=== PATIENT | male | born 1950 | race Caucasian/White ===

== ENCOUNTER 2017-11-09 19:14 | Inpatient (IN) | payer MEDICARE, OTHER ==
[~2017-11-09] VITALS: Ht 177.8 cm; Wt 66.0 kg
[2017-11-09] MEDS ORDERED: ETOMIDATE 20 MG/10 ML IVPush ONE (19:30)
[2017-11-09] MEDS ORDERED: PROPOFOL 100 ML IV SCH (19:30)
[2017-11-09] MEDS ORDERED: ONDANSETRON 2MG/ML, 2ML IVPush ONE (19:30)
[2017-11-09] MEDS ORDERED: SODIUM CHLORIDE FLUSH 10ML SYR IVF ONE (19:30)
[2017-11-09] MEDS ORDERED: SODIUM CHLORIDE 0.9% 1,000ML IVBOLUS ONE ×2 (19:30)
[2017-11-09] MEDS ORDERED: SUCCINYLCHOLINE 20 MG/ML, 10ML IVPush ONE (19:30)
[2017-11-09] MEDS ORDERED: PLEASE ENTER ALLERGIES MC SCH (19:30)
[2017-11-09] MEDS ORDERED: AMPICILLIN/SULBACTAM 3 GM in SODIUM CHLORIDE 0.9% 100 ML IV ONE (20:00)
[2017-11-09] MEDS ORDERED: SODIUM CHLORIDE 0.9%, 500ML IVBOLUS ONE ×2 (20:00→20:30)
[2017-11-09] MEDS ORDERED: PANTOPRAZOLE 40 MG IV IVPush ONE (20:00)
[2017-11-09 20:04] LABS: MEAN CORPUSCULAR HEMOGLOBIN 29.6 pg (27.5-34.5); MEAN CORPUSCULAR HGB CONC 32.3 g/dL (33.2-36.2); MEAN CORPUSCULAR VOLUME 91.7 fL (81-97); MEAN PLATELET VOLUME 8.4 fL (7.4-10.4); PLATELET COUNT 226 x10^3/uL (130-400); RED BLOOD COUNT 4.61 x10^6/uL (4.38-5.82); RED CELL DISTRIBUTION WIDTH 13.8 % (9.4-14.8)
[2017-11-09 20:19] LABS: ALBUMIN 2.5 g/dL (3.4-5.0); SALICYLATE LEVEL 3.1 mg/dL (2.8-20.0)
[2017-11-09] MEDS: NOREPINEPHRINE 4 MG in SODIUM CHLORIDE 0.9% 246 ML IV PRN (20:21)
[2017-11-09 20:28] LABS: ACETONE, SERUM Negative (Negative)
[2017-11-09 20:29] LABS: ALANINE AMINOTRANSFERASE 23 U/L (12-78); ANION GAP 14 mmol/L (5-15); BILIRUBIN,TOTAL 0.2 mg/dL (0.2-1.0); CALCIUM 7.2 mg/dL (8.5-10.1); CHLORIDE 100 mmol/L (98-107); CREATININE 2.93 mg/dL (0.7-1.3)
[2017-11-09] MEDS ORDERED: VANCOMYCIN PER PHARMACY MC ONE (20:30)
[2017-11-09] MEDS ORDERED: PIPERACILLIN/TAZO/PMX 3.375GM 50 ML IVPB ONE (20:30)
[2017-11-09 20:31] LABS: ACETAMINOPHEN 65 mcg/mL (10-30); ALKALINE PHOSPHATASE 63 U/L (45-117); TOTAL PROTEIN 5.7 g/dL (6.4-8.2)
[2017-11-09 20:46] LABS: INTERNATIONAL NORMALIZED RATIO 1.14 (0.93-1.1); PROTHROMBIN TIME 11.7 Seconds (9.6-11.5)
[2017-11-09] MEDS ORDERED: CALCIUM CHLORIDE 10%, 10ML SYR IVPush ONE (21:00)
[2017-11-09] MEDS ORDERED: VANCOMYCIN 1,500 MG in SODIUM CHLORIDE 0.9% 250 ML IV ONE (21:00)
[2017-11-09] MEDS ORDERED: INSULIN REGULAR 100 UNITS/ML, 3ML VIAL IVPush ONE (21:00)
[2017-11-09] MEDS ORDERED: SODIUM BICARB 8.4%, 50ML SYRINGE IVPush ONE (21:00)
[2017-11-09 21:01] LABS: MD YES
[2017-11-09 21:15] LABS: BAND#(MANUAL) 2.92 x10^3/uL; BANDS%(MANUAL) 6 % (0-7); LYMPH#(MANUAL) 30.68 x10^3/uL (1-3.4); LYMPHS% (MANUAL) 63 % (22-44); MONOS#(MANUAL) 0.97 x10^3/uL (0.3-2.7); MONOS% (MANUAL) 2 % (2-9); REACTIVE LYMPHS # (MANUAL) 1.95 x10^3/uL (0-0); REACTIVE LYMPHS % (MANUAL) 4 % (0-0); SEG#(MANUAL) 9.74 x10^3/uL (1.8-6.8); SEGS% (MANUAL) 20 % (42-75)
[2017-11-09 21:16] LABS: OTHER CELLS # (MANUAL) 2.44 x10^3/uL (0-0); OTHER CELLS % (MANUAL) 5 % (0-0)
[2017-11-09] MEDS ORDERED: CALCIUM CHLORIDE 10%, 10ML SYR ONE (21:16)
[2017-11-09] MEDS ORDERED: SODIUM BICARB 8.4%, 50ML SYRINGE ONE (21:16)
[2017-11-09 21:22] LABS: <PLATELET ESTIMATE> ADEQUATE; LARGE PLATELETS 1+
[2017-11-09] MEDS ORDERED: SODIUM CHLORIDE 0.9%, 500ML IVBOLUS PRN ×3 (21:30)
[2017-11-09] MEDS ORDERED: GLUCAGON 1 MG IM PRN (21:30)
[2017-11-09] MEDS ORDERED: DEXTROSE 50%, 50ML SYRINGE IVPush PRN (21:30)
[2017-11-09] MEDS ORDERED: DEXTROSE 4 GM TAB.CHEW PO PRN (21:30)
[2017-11-09] MEDS ORDERED: DEXTROSE 5% IV ONE ×2 (21:30→23:30)
[2017-11-09] MEDS ORDERED: VANCOMYCIN PER PHARMACY MC PRN (21:30)
[2017-11-09] MEDS ORDERED: ACETYLCYSTEINE IV ONE ×2 (21:30→23:30)
[2017-11-09] MEDS ORDERED: ONDANSETRON 2MG/ML, 2ML IVPB PRN (21:30)
[2017-11-09] MEDS: PIPERACILLIN/TAZO/PMX 4.5GM 50 ML IVPB SCH (21:30)
[2017-11-09] MEDS: INSULIN LISPRO 100 UNITS/ML, PEN SQ-INSULIN SCH (21:30)
[2017-11-09] MEDS ORDERED: PHARMACY MAY ADJ FOR RENAL FX MC PRN (21:30)
[2017-11-09] MEDS ORDERED: PHARMACY MAY ADJ FOR RENAL FX MC SCH (22:00)
[2017-11-09] MEDS ORDERED: LIDOCAINE-MPF 1%, 2ML ENDO PRN (22:00)
[2017-11-09] MEDS: SODIUM BICARBONATE 8.4% 150 MEQ in DEXTROSE 5% 1,000 ML IV SCH (22:39)
[2017-11-09 22:40] LABS: AMPHETAMINE SCREEN, URINE Negative (Negative); BARBITURATE SCREEN, URINE Negative (Negative); BENZODIAZEPINE SCREEN, URINE Positive (Negative); CANNABINOID SCREEN, URINE Negative (Negative); COCAINE SCREEN, URINE Negative (Negative); METHADONE SCREEN, URINE Negative (Negative); OPIATE SCREEN, URINE Positive (Negative)
[2017-11-09 22:42] LABS: MICROSCOPIC INDICATED
[2017-11-09 22:59] LABS: CULTURE INDICATED? NO
[2017-11-09] MEDS ORDERED: PANTOPRAZOLE 40 MG IV ONE (23:34)
[2017-11-09] MEDS: PANTOPRAZOLE 40 MG IV IV SCH (23:40)
[2017-11-10] MEDS ORDERED: ACETAMINOPHEN 650 MG SUPP ONE (01:20)
[2017-11-10] MEDS ORDERED: ACETAMINOPHEN 650 MG SUPP PR ONE (01:30)
[2017-11-10] MEDS: NOREPINEPHRINE 4 MG in SODIUM CHLORIDE 0.9% 246 ML IV PRN ×3 (01:32→13:50)
[2017-11-10] MEDS: PANTOPRAZOLE 80 MG in SODIUM CHLORIDE 0.9% 100 ML IV SCH ×2 (01:51→10:22)
[2017-11-10] MEDS ORDERED: PROPOFOL 100 ML IV ONE (04:00)
[2017-11-10] MEDS ORDERED: IBUPROFEN 100 MG/5 ML UDC ONE (04:08)
[2017-11-10] MEDS ORDERED: IBUPROFEN 600 MG TABLET PO PRN (04:30)
[2017-11-10 05:15] LABS: MEAN CORPUSCULAR HEMOGLOBIN 29.7 pg (27.5-34.5); MEAN CORPUSCULAR HGB CONC 32.8 g/dL (33.2-36.2); MEAN CORPUSCULAR VOLUME 90.4 fL (81-97); MEAN PLATELET VOLUME 8.5 fL (7.4-10.4); PLATELET COUNT 204 x10^3/uL (130-400); RED BLOOD COUNT 4.97 x10^6/uL (4.38-5.82)
[2017-11-10 05:20] LABS: ALANINE AMINOTRANSFERASE 29 U/L (12-78); ALBUMIN 2.1 g/dL (3.4-5.0); ANION GAP 12 mmol/L (5-15); CHLORIDE 105 mmol/L (98-107); CREATININE 2.58 mg/dL (0.7-1.3)
[2017-11-10 05:28] LABS: ACETAMINOPHEN 17 mcg/mL (10-30); ALKALINE PHOSPHATASE 42 U/L (45-117); BILIRUBIN,TOTAL 0.3 mg/dL (0.2-1.0); TOTAL PROTEIN 4.8 g/dL (6.4-8.2)
[2017-11-10 05:38] LABS: MD YES
[2017-11-10 06:10] LABS: LYMPHS% (MANUAL) 96 % (22-44); SEGS% (MANUAL) 4 % (42-75)
[2017-11-10 06:12] LABS: <PLATELET ESTIMATE> ADEQUATE; <RBC MORPHOLOGY> NORMAL
[2017-11-10 06:13] LABS: LARGE PLATELETS 1+; SMUDGE CELLS 3+
[2017-11-10] MEDS: INSULIN LISPRO 100 UNITS/ML, PEN SQ-INSULIN SCH ×5 (07:00→20:54)
[2017-11-10] MEDS ORDERED: VASOPRESSIN 100 UNIT in SODIUM CHLORIDE 0.9% 495 ML IV PRN (08:30)
[2017-11-10] MEDS ORDERED: HEPARIN 5,000 UNITS/ML, 1ML ONE (08:59)
[2017-11-10] MEDS: SODIUM CHLORIDE FLUSH 10ML SYR IVF SCH ×2 (09:00→20:37)
[2017-11-10] MEDS: HEPARIN 5,000 UNITS/ML, 1ML SQ SCH ×2 (09:00→20:11)
[2017-11-10] MEDS ORDERED: DEXTROSE 5% IV ONE (09:30)
[2017-11-10] MEDS: PIPERACILLIN/TAZO/PMX 4.5GM 50 ML IVPB SCH ×3 (09:30→18:32)
[2017-11-10] MEDS ORDERED: ACETYLCYSTEINE IV ONE (09:30)
[2017-11-10] MEDS: PROPOFOL 100 ML IV PRN ×2 (10:00→18:31)
[2017-11-10] MEDS ORDERED: SUCCINYLCHOLINE 20 MG/ML, 10ML ONE (12:00)
[2017-11-10] MEDS ORDERED: MIDAZOLAM 1 MG/ML, 5ML ONE (12:00)
[2017-11-10] MEDS ORDERED: PROPOFOL 10 MG/ML, 100ML IV ONE (12:00)
[2017-11-10] MEDS ORDERED: ETOMIDATE 40 MG/20 ML ONE (12:00)
[2017-11-10] MEDS ORDERED: VECURONIUM 10 MG ONE (12:00)
[2017-11-10] MEDS ORDERED: RACEPINEPHRINE INH 2.25%, 0.5ML ONE (12:26)
[2017-11-10] MEDS ORDERED: PHARMACOKINETIC CONSULTATION MC ONE (12:30)
[2017-11-10] MEDS ORDERED: PHARMACOKINETIC MONITORING MC PRN (12:30)
[2017-11-10] MEDS ORDERED: SODIUM CHLORIDE 0.9%, 500ML IVBOLUS PRN (13:00)
[2017-11-10] MEDS: SODIUM BICARBONATE 8.4% 150 MEQ in DEXTROSE 5% 1,000 ML IV SCH ×3 (13:20→22:38)
[2017-11-10 15:01] LABS: OCCULT BLOOD POSITIVE (NEGATIVE)
[2017-11-10 17:07] LABS: ANION GAP 15 mmol/L (5-15); CALCIUM 7.2 mg/dL (8.5-10.1); CHLORIDE 99 mmol/L (98-107); CREATININE 2.91 mg/dL (0.7-1.3)
[2017-11-10 17:22] LABS: CREATINE KINASE, TOTAL 1598 U/L (39-308)
[2017-11-10 18:51] LABS: CLOSTRIDIUM DIFFICILE ANTIGEN NEGATIVE; CLOSTRIDIUM DIFFICILE TOXIN NEGATIVE (Negative)
[2017-11-10] MEDS ORDERED: VANCOMYCIN 1,500 MG in SODIUM CHLORIDE 0.9% 250 ML IV ONE (20:00)
[2017-11-10] MEDS: FOLIC ACID 1 MG TABLET PO SCH (21:15)
[2017-11-10] MEDS: THIAMINE 100MG TABLET PO SCH (21:15)
[2017-11-10] MEDS: PANTOPRAZOLE 40 MG IV IV SCH (21:17)
[2017-11-11] MEDS: PIPERACILLIN/TAZO/PMX 4.5GM 50 ML IVPB SCH ×4 (00:19→17:50)
[2017-11-11] MEDS: NOREPINEPHRINE 4 MG in SODIUM CHLORIDE 0.9% 246 ML IV PRN ×2 (01:36→11:07)
[2017-11-11] MEDS ORDERED: ACETYLCYSTEINE IV SCH (02:00)
[2017-11-11] MEDS ORDERED: DEXTROSE 5% IV SCH (02:00)
[2017-11-11 04:04] VITALS: BP 112/62
[2017-11-11 05:59] LABS: ALANINE AMINOTRANSFERASE 21 U/L (12-78); ALBUMIN 1.6 g/dL (3.4-5.0); ANION GAP 12 mmol/L (5-15); CALCIUM 6.6 mg/dL (8.5-10.1); CHLORIDE 97 mmol/L (98-107)
[2017-11-11 06:02] LABS: ACETAMINOPHEN 11 mcg/mL (10-30); ALKALINE PHOSPHATASE 42 U/L (45-117); BILIRUBIN,TOTAL 0.5 mg/dL (0.2-1.0); TOTAL PROTEIN 4.5 g/dL (6.4-8.2)
[2017-11-11 06:09] LABS: MEAN CORPUSCULAR HEMOGLOBIN 29.6 pg (27.5-34.5); MEAN CORPUSCULAR HGB CONC 33.2 g/dL (33.2-36.2); MEAN CORPUSCULAR VOLUME 89.2 fL (81-97); MEAN PLATELET VOLUME 9.1 fL (7.4-10.4); PLATELET COUNT 151 x10^3/uL (130-400); RED CELL DISTRIBUTION WIDTH 13.8 % (9.4-14.8)
[2017-11-11] MEDS: SODIUM BICARBONATE 8.4% 150 MEQ in DEXTROSE 5% 1,000 ML IV SCH (06:23)
[2017-11-11 07:34] LABS: MD YES
[2017-11-11] MEDS: INSULIN LISPRO 100 UNITS/ML, PEN SQ-INSULIN SCH ×4 (07:35→21:30)
[2017-11-11 07:38] LABS: BAND#(MANUAL) 3.86 x10^3/uL; BANDS%(MANUAL) 8 % (0-7); MONOS#(MANUAL) 0.96 x10^3/uL (0.3-2.7); MONOS% (MANUAL) 2 % (2-9); SEG#(MANUAL) 5.78 x10^3/uL (1.8-6.8); SEGS% (MANUAL) 12 % (42-75)
[2017-11-11 07:39] LABS: <RBC MORPHOLOGY> NORMAL; SMUDGE CELLS 3+
[2017-11-11 07:40] LABS: <PLATELET ESTIMATE> ADEQUATE
[2017-11-11 07:42] LABS: LYMPHS% (MANUAL) 75 % (22-44); OTHER CELLS # (MANUAL) 1.45 x10^3/uL (0-0); OTHER CELLS % (MANUAL) 3 % (0-0)
[2017-11-11 07:43] LABS: LARGE PLATELETS 1+
[2017-11-11] MEDS: HEPARIN 5,000 UNITS/ML, 1ML SQ SCH (09:00)
[2017-11-11] MEDS: OCTREOTIDE 500 MCG in SODIUM CHLORIDE 0.9% 249 ML IV SCH ×2 (11:08→20:46)
[2017-11-11] MEDS: LACTATED RINGERS 1,000 ML IV SCH ×2 (11:09→21:25)
[2017-11-11] MEDS: SODIUM CHLORIDE FLUSH 10ML SYR IVF SCH ×2 (11:12→21:25)
[2017-11-11] MEDS: PANTOPRAZOLE 40 MG IV IV SCH ×2 (11:13→21:25)
[2017-11-11] MEDS: THIAMINE 100MG TABLET PO SCH (11:13)
[2017-11-11] MEDS: FOLIC ACID 1 MG TABLET PO SCH (11:13)
[2017-11-11] MEDS: PROPOFOL 100 ML IV PRN (16:45)
[2017-11-12] MEDS: PIPERACILLIN/TAZO/PMX 4.5GM 50 ML IVPB SCH ×2 (00:04→05:53)
[2017-11-12 04:00] VITALS: BP 110/64
[2017-11-12 05:26] LABS: MEAN CORPUSCULAR HEMOGLOBIN 29.7 pg (27.5-34.5); MEAN CORPUSCULAR HGB CONC 33.5 g/dL (33.2-36.2); MEAN CORPUSCULAR VOLUME 88.8 fL (81-97); RED BLOOD COUNT 3.83 x10^6/uL (4.38-5.82); RED CELL DISTRIBUTION WIDTH 13.6 % (9.4-14.8)
[2017-11-12 05:28] LABS: CHLORIDE 96 mmol/L (98-107)
[2017-11-12 05:46] LABS: ALANINE AMINOTRANSFERASE 16 U/L (12-78); ALBUMIN 1.5 g/dL (3.4-5.0); ALKALINE PHOSPHATASE 65 U/L (45-117); ANION GAP 15 mmol/L (5-15); BILIRUBIN,TOTAL 0.7 mg/dL (0.2-1.0); CALCIUM 6.6 mg/dL (8.5-10.1); CREATINE KINASE, TOTAL 600 U/L (39-308); CREATININE 3.43 mg/dL (0.7-1.3); TOTAL PROTEIN 4.7 g/dL (6.4-8.2); TRIGLYCERIDES 537 mg/dL (50-200); VANCOMYCIN,RANDOM 22.2 mcg/mL
[2017-11-12] MEDS: LACTATED RINGERS 1,000 ML IV SCH (05:53)
[2017-11-12] MEDS: OCTREOTIDE 500 MCG in SODIUM CHLORIDE 0.9% 249 ML IV SCH ×2 (05:54→16:51)
[2017-11-12 05:55] LABS: MD YES
[2017-11-12 06:00] LABS: LYMPH#(MANUAL) 31.82 x10^3/uL (1-3.4); LYMPHS% (MANUAL) 72 % (22-44); MEAN PLATELET VOLUME 8.8 fL (7.4-10.4); MONOS#(MANUAL) 0.88 x10^3/uL (0.3-2.7); MONOS% (MANUAL) 2 % (2-9); PLATELET COUNT 99 x10^3/uL (130-400); SEG#(MANUAL) 11.49 x10^3/uL (1.8-6.8); SEGS% (MANUAL) 26 % (42-75)
[2017-11-12 06:01] LABS: SMUDGE CELLS 2+
[2017-11-12 06:02] LABS: <PLATELET ESTIMATE> DECREASED; LARGE PLATELETS 1+; POLYCHROMASIA 1+
[2017-11-12] MEDS: INSULIN LISPRO 100 UNITS/ML, PEN SQ-INSULIN SCH ×4 (06:54→21:45)
[2017-11-12] MEDS ORDERED: CEFTRIAXONE PMX 2GM/50ML 50 ML IVPB SCH (08:30)
[2017-11-12] MEDS: METRONIDAZOLE PMX 500MG/100ML 100 ML IV SCH ×3 (08:48→23:50)
[2017-11-12] MEDS: PANTOPRAZOLE 40 MG IV IV SCH ×2 (09:00→21:39)
[2017-11-12] MEDS: SODIUM CHLORIDE FLUSH 10ML SYR IVF SCH ×2 (09:01→21:39)
[2017-11-12] MEDS: D5%-0.9% NACL 1,000 ML IV SCH ×2 (10:00→23:50)
[2017-11-12] MEDS: PROPOFOL 100 ML IV PRN (11:21)
[2017-11-12] MEDS ORDERED: ASPIRIN 325 MG TABLET PO ONE (16:00)
[2017-11-12] MEDS: ATORVASTATIN 80 MG TABLET PO SCH (21:40)
[2017-11-12] MEDS: THIAMINE 100MG TABLET PO SCH (21:42)
[2017-11-12] MEDS: FOLIC ACID 1 MG TABLET PO SCH (21:42)
[2017-11-12] MEDS: FENTANYL PF 100 MCG/2ML IVPush PRN (23:25)
[2017-11-13] MEDS: OCTREOTIDE 500 MCG in SODIUM CHLORIDE 0.9% 249 ML IV SCH ×3 (02:49→23:14)
[2017-11-13] MEDS: FENTANYL PF 100 MCG/2ML IVPush PRN ×3 (02:49→19:37)
[2017-11-13 03:30] VITALS: BP 140/78
[2017-11-13 05:04] LABS: MEAN CORPUSCULAR HEMOGLOBIN 29.3 pg (27.5-34.5); MEAN CORPUSCULAR HGB CONC 33.2 g/dL (33.2-36.2); MEAN CORPUSCULAR VOLUME 88.3 fL (81-97); RED BLOOD COUNT 3.82 x10^6/uL (4.38-5.82); RED CELL DISTRIBUTION WIDTH 13.8 % (9.4-14.8)
[2017-11-13 05:55] LABS: MD YES; PLATELET COUNT 76 x10^3/uL (130-400)
[2017-11-13 05:56] LABS: MONOS#(MANUAL) 0.41 x10^3/uL (0.3-2.7); MONOS% (MANUAL) 1 % (2-9)
[2017-11-13 05:58] LABS: LYMPHS% (MANUAL) 76 % (22-44); SEG#(MANUAL) 9.45 x10^3/uL (1.8-6.8); SEGS% (MANUAL) 23 % (42-75)
[2017-11-13 05:59] LABS: LYMPH#(MANUAL) 31.24 x10^3/uL (1-3.4)
[2017-11-13 06:00] LABS: <PLATELET ESTIMATE> DECREASED; LARGE PLATELETS 1+; SMUDGE CELLS 2+
[2017-11-13 06:02] LABS: POLYCHROMASIA 1+
[2017-11-13 06:19] LABS: ANION GAP 11 mmol/L (5-15); CALCIUM 7.1 mg/dL (8.5-10.1); CHLORIDE 103 mmol/L (98-107); CREATININE 3.14 mg/dL (0.7-1.3)
[2017-11-13] MEDS: ASPIRIN 325 MG TABLET PO SCH (06:33)
[2017-11-13] MEDS: CEFTRIAXONE 2,000 MG in SODIUM CHLORIDE 0.9% 50 ML IVPB SCH (09:17)
[2017-11-13] MEDS: METRONIDAZOLE PMX 500MG/100ML 100 ML IV SCH ×2 (09:18→16:37)
[2017-11-13] MEDS: SODIUM CHLORIDE FLUSH 10ML SYR IVF SCH ×2 (09:19→19:37)
[2017-11-13] MEDS: INSULIN LISPRO 100 UNITS/ML, PEN SQ-INSULIN SCH ×3 (09:19→19:43)
[2017-11-13] MEDS: PANTOPRAZOLE 40 MG IV IV SCH ×2 (09:25→19:37)
[2017-11-13] MEDS: FENTANYL 50 MCG PATCH TD SCH (09:25)
[2017-11-13] MEDS: OFLOXACIN OPHTH 0.3%, 5ML EACHEYE SCH ×4 (11:57→19:44)
[2017-11-13] MEDS: D5%-0.9% NACL 1,000 ML IV SCH (11:58)
[2017-11-13] MEDS: ATORVASTATIN 80 MG TABLET PO SCH (19:38)
[2017-11-13] MEDS: THIAMINE 100MG TABLET PO SCH (19:43)
[2017-11-13] MEDS: FOLIC ACID 1 MG TABLET PO SCH (19:43)
[2017-11-14] MEDS: METRONIDAZOLE PMX 500MG/100ML 100 ML IV SCH ×3 (00:17→17:18)
[2017-11-14] MEDS: FENTANYL PF 100 MCG/2ML IVPush PRN ×3 (00:17→13:23)
[2017-11-14] MEDS: OFLOXACIN OPHTH 0.3%, 5ML EACHEYE SCH ×6 (00:18→22:30)
[2017-11-14] MEDS: D5%-0.9% NACL 1,000 ML IV SCH (00:20)
[2017-11-14] MEDS: INSULIN LISPRO 100 UNITS/ML, PEN SQ-INSULIN SCH ×4 (03:05→19:51)
[2017-11-14 04:00] VITALS: BP 159/75
[2017-11-14 04:49] LABS: MEAN CORPUSCULAR HEMOGLOBIN 29.2 pg (27.5-34.5); MEAN CORPUSCULAR HGB CONC 32.6 g/dL (33.2-36.2); MEAN CORPUSCULAR VOLUME 89.5 fL (81-97); MEAN PLATELET VOLUME 8.5 fL (7.4-10.4); PLATELET COUNT 76 x10^3/uL (130-400); RED BLOOD COUNT 4.13 x10^6/uL (4.38-5.82); RED CELL DISTRIBUTION WIDTH 13.8 % (9.4-14.8)
[2017-11-14 04:54] LABS: FIO2 95 %
[2017-11-14 05:00] LABS: CHLORIDE 111 mmol/L (98-107)
[2017-11-14 05:11] LABS: ALANINE AMINOTRANSFERASE 18 U/L (12-78); ALBUMIN 1.5 g/dL (3.4-5.0); ALKALINE PHOSPHATASE 86 U/L (45-117); ANION GAP 8 mmol/L (5-15); BILIRUBIN,TOTAL 0.7 mg/dL (0.2-1.0); CALCIUM 7.8 mg/dL (8.5-10.1); TOTAL PROTEIN 5.2 g/dL (6.4-8.2)
[2017-11-14] MEDS: ASPIRIN 325 MG TABLET PO SCH (05:13)
[2017-11-14 05:37] LABS: MD YES
[2017-11-14 05:38] LABS: LYMPH#(MANUAL) 38.16 x10^3/uL (1-3.4); LYMPHS% (MANUAL) 79 % (22-44); MONOS#(MANUAL) 0.48 x10^3/uL (0.3-2.7); MONOS% (MANUAL) 1 % (2-9); SEG#(MANUAL) 9.66 x10^3/uL (1.8-6.8); SEGS% (MANUAL) 20 % (42-75)
[2017-11-14 05:39] LABS: <RBC MORPHOLOGY> NORMAL; SMUDGE CELLS 2+
[2017-11-14 05:40] LABS: <PLATELET ESTIMATE> DECREASED; LARGE PLATELETS 1+
[2017-11-14] MEDS ORDERED: D5%-0.45% NACL 1,000 ML IV SCH (07:30)
[2017-11-14 09:44] LABS: HIT RESULT NEGATIVE (NEGATIVE)
[2017-11-14] MEDS: FUROSEMIDE 20 MG/2 ML IV SCH ×2 (10:27→19:48)
[2017-11-14] MEDS: PANTOPRAZOLE 40 MG IV IV SCH ×2 (10:27→19:48)
[2017-11-14] MEDS: CEFTRIAXONE 2,000 MG in SODIUM CHLORIDE 0.9% 50 ML IVPB SCH (10:31)
[2017-11-14] MEDS: SODIUM CHLORIDE FLUSH 10ML SYR IVF SCH ×2 (10:32→19:48)
[2017-11-14] MEDS: CARVEDILOL 3.125 MG TABLET PO SCH ×2 (11:59→17:21)
[2017-11-14] MEDS ORDERED: hydrALAzine 20 MG/ML, 1ML ONE (15:41)
[2017-11-14] MEDS: hydrALAzine 20 MG/ML, 1ML IV PRN (15:43)
[2017-11-14] MEDS: FOLIC ACID 1 MG TABLET PO SCH (19:48)
[2017-11-14] MEDS: ATORVASTATIN 80 MG TABLET PO SCH (19:48)
[2017-11-14] MEDS: THIAMINE 100MG TABLET PO SCH (19:49)
[2017-11-15] MEDS: OFLOXACIN OPHTH 0.3%, 5ML EACHEYE SCH ×4 (01:13→21:01)
[2017-11-15] MEDS: METRONIDAZOLE PMX 500MG/100ML 100 ML IV SCH ×3 (01:13→16:45)
[2017-11-15] MEDS ORDERED: METOPROLOL 1 MG/ML, 5ML ONE (02:55)
[2017-11-15] MEDS: INSULIN LISPRO 100 UNITS/ML, PEN SQ-INSULIN SCH ×4 (03:00→21:00)
[2017-11-15] MEDS ORDERED: METOPROLOL 1 MG/ML, 5ML IVPush ONE ×2 (03:00→04:00)
[2017-11-15 03:56] VITALS: BP 150/90
[2017-11-15] MEDS: ASPIRIN 325 MG TABLET PO SCH (05:06)
[2017-11-15] MEDS: CARVEDILOL 3.125 MG TABLET PO SCH ×2 (06:04→18:19)
[2017-11-15] MEDS: hydrALAzine 20 MG/ML, 1ML IV PRN (06:34)
[2017-11-15 06:44] LABS: MEAN CORPUSCULAR HEMOGLOBIN 29.5 pg (27.5-34.5); MEAN CORPUSCULAR HGB CONC 32.9 g/dL (33.2-36.2); MEAN CORPUSCULAR VOLUME 89.7 fL (81-97); MEAN PLATELET VOLUME 8.6 fL (7.4-10.4); PLATELET COUNT 118 x10^3/uL (130-400); RED BLOOD COUNT 4.79 x10^6/uL (4.38-5.82); RED CELL DISTRIBUTION WIDTH 14.1 % (9.4-14.8)
[2017-11-15 06:46] LABS: CALCIUM 7.9 mg/dL (8.5-10.1); CREATININE 1.39 mg/dL (0.7-1.3)
[2017-11-15 06:51] LABS: ANION GAP 10 mmol/L (5-15); CHLORIDE 111 mmol/L (98-107)
[2017-11-15 07:24] LABS: MD YES
[2017-11-15 08:28] LABS: EOS% (MANUAL) 0 % (1-7); MONOS#(MANUAL) 0.69 x10^3/uL (0.3-2.7); MONOS% (MANUAL) 1 % (2-9); REACTIVE LYMPHS % (MANUAL) 0 % (0-0)
[2017-11-15 08:30] LABS: BAND#(MANUAL) 0.69 x10^3/uL; BANDS%(MANUAL) 1 % (0-7); LYMPH#(MANUAL) 57.71 x10^3/uL (1-3.4); LYMPHS% (MANUAL) 84 % (22-44); SEG#(MANUAL) 9.62 x10^3/uL (1.8-6.8); SEGS% (MANUAL) 14 % (42-75)
[2017-11-15] MEDS ORDERED: FUROSEMIDE 20 MG/2 ML IV ONE (08:30)
[2017-11-15] MEDS ORDERED: POTASSIUM CHLORIDE 20 MEQ in SODIUM CHLORIDE 0.9% 250 ML IV ONE (08:30)
[2017-11-15 08:31] LABS: POLYCHROMASIA 1+; SMUDGE CELLS 2+
[2017-11-15 08:32] LABS: <PLATELET ESTIMATE> DECREASED; LARGE PLATELETS 1+
[2017-11-15] MEDS: CEFTRIAXONE 2,000 MG in SODIUM CHLORIDE 0.9% 50 ML IVPB SCH (09:17)
[2017-11-15] MEDS: FONDAPARINUX 2.5 MG/0.5 ML SQ SCH (09:20)
[2017-11-15] MEDS: SODIUM CHLORIDE FLUSH 10ML SYR IVF SCH ×2 (09:20→20:59)
[2017-11-15] MEDS: PANTOPRAZOLE 40 MG IV IV SCH ×2 (09:20→20:59)
[2017-11-15] MEDS: AMIODARONE 900 MG in DEXTROSE 5% 482 ML IV PRN (14:45)
[2017-11-15] MEDS ORDERED: FILTER 0.22 MICRON FOR AMIODARONE IV PRN (15:00)
[2017-11-15] MEDS ORDERED: AMIODARONE 150 MG in DEXTROSE 5% 100 ML IV ONE (15:00)
[2017-11-15] MEDS ORDERED: SODIUM CHLORIDE 0.9%, 500ML IVBOLUS ONE ×2 (15:00)
[2017-11-15] MEDS: FOLIC ACID 1 MG TABLET PO SCH (21:00)
[2017-11-15] MEDS: THIAMINE 100MG TABLET PO SCH (21:00)
[2017-11-15] MEDS: ATORVASTATIN 80 MG TABLET PO SCH (21:00)
[2017-11-16] MEDS: METRONIDAZOLE PMX 500MG/100ML 100 ML IV SCH ×2 (00:23→07:35)
[2017-11-16] MEDS: hydrALAzine 20 MG/ML, 1ML IV PRN ×2 (03:00→08:20)
[2017-11-16] MEDS: ACETAMINOPHEN 325 MG TABLET PO PRN ×2 (03:10→12:17)
[2017-11-16] MEDS ORDERED: METOPROLOL 1 MG/ML, 5ML IVPush ONE (04:00)
[2017-11-16 05:30] VITALS: BP 160/58
[2017-11-16] MEDS: ASPIRIN 325 MG TABLET PO SCH (05:32)
[2017-11-16] MEDS: CARVEDILOL 3.125 MG TABLET PO SCH ×2 (05:33→17:18)
[2017-11-16] MEDS: CEFTRIAXONE 2,000 MG in SODIUM CHLORIDE 0.9% 50 ML IVPB SCH (07:35)
[2017-11-16] MEDS: OFLOXACIN OPHTH 0.3%, 5ML EACHEYE SCH ×3 (07:36→21:39)
[2017-11-16] MEDS: PANTOPRAZOLE 40 MG IV IV SCH ×2 (07:42→21:39)
[2017-11-16] MEDS: FENTANYL 50 MCG PATCH TD SCH (07:42)
[2017-11-16] MEDS: FONDAPARINUX 2.5 MG/0.5 ML SQ SCH (07:43)
[2017-11-16] MEDS: SODIUM CHLORIDE FLUSH 10ML SYR IVF SCH ×2 (07:43→21:39)
[2017-11-16 07:55] LABS: ALANINE AMINOTRANSFERASE 15 U/L (12-78); ALBUMIN 1.9 g/dL (3.4-5.0); CALCIUM 7.7 mg/dL (8.5-10.1)
[2017-11-16 07:57] LABS: ALKALINE PHOSPHATASE 113 U/L (45-117); BILIRUBIN,TOTAL 0.6 mg/dL (0.2-1.0); TOTAL PROTEIN 5.6 g/dL (6.4-8.2)
[2017-11-16 08:04] LABS: ANION GAP 9 mmol/L (5-15); CHLORIDE 123 mmol/L (98-107)
[2017-11-16 08:11] LABS: MEAN CORPUSCULAR HEMOGLOBIN 28.9 pg (27.5-34.5); MEAN CORPUSCULAR HGB CONC 32.5 g/dL (33.2-36.2); MEAN CORPUSCULAR VOLUME 88.9 fL (81-97); MEAN PLATELET VOLUME 8.4 fL (7.4-10.4); PLATELET COUNT 224 x10^3/uL (130-400); RED BLOOD COUNT 4.74 x10^6/uL (4.38-5.82)
[2017-11-16 08:12] LABS: MD YES
[2017-11-16] MEDS: INSULIN LISPRO 100 UNITS/ML, PEN SQ-INSULIN SCH ×4 (08:15→21:49)
[2017-11-16] MEDS: AMIODARONE 900 MG in DEXTROSE 5% 482 ML IV PRN (08:16)
[2017-11-16 08:19] LABS: LYMPH#(MANUAL) 58.25 x10^3/uL (1-3.4); LYMPHS% (MANUAL) 73 % (22-44); SEG#(MANUAL) 21.55 x10^3/uL (1.8-6.8); SEGS% (MANUAL) 27 % (42-75)
[2017-11-16 08:20] LABS: <PLATELET ESTIMATE> ADEQUATE; POLYCHROMASIA 1+; SMUDGE CELLS 2+
[2017-11-16 08:21] LABS: LARGE PLATELETS 1+
[2017-11-16] MEDS: DEXTROSE 5% 1,000 ML IV SCH ×2 (08:24→17:19)
[2017-11-16] MEDS: ERTAPENEM 1 GM in SODIUM CHLORIDE 0.9% 50 ML IV SCH (09:11)
[2017-11-16] MEDS: ATORVASTATIN 80 MG TABLET PO SCH (21:39)
[2017-11-16] MEDS: THIAMINE 100MG TABLET PO SCH (21:39)
[2017-11-16] MEDS: FOLIC ACID 1 MG TABLET PO SCH (21:39)
[2017-11-17 04:00] VITALS: BP 156/58
[2017-11-17 04:31] LABS: MEAN CORPUSCULAR HEMOGLOBIN 29.1 pg (27.5-34.5); MEAN CORPUSCULAR HGB CONC 32.2 g/dL (33.2-36.2); MEAN CORPUSCULAR VOLUME 90.3 fL (81-97); MEAN PLATELET VOLUME 8.2 fL (7.4-10.4); PLATELET COUNT 270 x10^3/uL (130-400); RED BLOOD COUNT 4.65 x10^6/uL (4.38-5.82); RED CELL DISTRIBUTION WIDTH 14.2 % (9.4-14.8)
[2017-11-17 04:36] LABS: ALBUMIN 1.8 g/dL (3.4-5.0); ANION GAP 7 mmol/L (5-15); CALCIUM 7.5 mg/dL (8.5-10.1); CHLORIDE 112 mmol/L (98-107)
[2017-11-17 04:40] LABS: ALANINE AMINOTRANSFERASE 15 U/L (12-78); ALKALINE PHOSPHATASE 106 U/L (45-117); BILIRUBIN,TOTAL 0.5 mg/dL (0.2-1.0); CREATININE 1.23 mg/dL (0.7-1.3); TOTAL PROTEIN 5.3 g/dL (6.4-8.2)
[2017-11-17 05:41] LABS: MD YES
[2017-11-17 05:42] LABS: LYMPH#(MANUAL) 75.43 x10^3/uL (1-3.4); LYMPHS% (MANUAL) 84 % (22-44); POLYCHROMASIA 1+; SEG#(MANUAL) 14.37 x10^3/uL (1.8-6.8); SEGS% (MANUAL) 16 % (42-75)
[2017-11-17 05:43] LABS: <PLATELET ESTIMATE> ADEQUATE; LARGE PLATELETS 1+; SMUDGE CELLS 2+
[2017-11-17] MEDS: CARVEDILOL 3.125 MG TABLET PO SCH ×2 (05:47→17:38)
[2017-11-17] MEDS: ASPIRIN 325 MG TABLET PO SCH (05:47)
[2017-11-17] MEDS: INSULIN LISPRO 100 UNITS/ML, PEN SQ-INSULIN SCH ×4 (07:30→21:34)
[2017-11-17] MEDS ORDERED: FUROSEMIDE 20 MG/2 ML IV ONE (08:30)
[2017-11-17] MEDS: PANTOPRAZOLE 40 MG IV IV SCH ×2 (08:38→21:24)
[2017-11-17] MEDS: FONDAPARINUX 2.5 MG/0.5 ML SQ SCH (08:38)
[2017-11-17] MEDS: SODIUM CHLORIDE FLUSH 10ML SYR IVF SCH ×2 (08:38→21:24)
[2017-11-17] MEDS: OFLOXACIN OPHTH 0.3%, 5ML EACHEYE SCH ×3 (08:39→21:35)
[2017-11-17] MEDS: ERTAPENEM 1 GM in SODIUM CHLORIDE 0.9% 50 ML IV SCH (09:20)
[2017-11-17 15:52] VITALS: BP 163/77
[2017-11-17 16:52] LABS: OCCULT BLOOD POSITIVE (NEGATIVE)
[2017-11-17] MEDS: AMIODARONE 900 MG in DEXTROSE 5% 482 ML IV PRN (17:55)
[2017-11-17 18:37] VITALS: BP 144/72
[2017-11-17] MEDS: THIAMINE 100MG TABLET PO SCH (21:37)
[2017-11-17] MEDS: ATORVASTATIN 80 MG TABLET PO SCH (21:37)
[2017-11-17] MEDS: FOLIC ACID 1 MG TABLET PO SCH (21:37)
[2017-11-18 00:05] VITALS: BP 136/69
[2017-11-18 05:16] LABS: CHLORIDE 113 mmol/L (98-107)
[2017-11-18 05:23] LABS: ALANINE AMINOTRANSFERASE 15 U/L (12-78); ALBUMIN 1.9 g/dL (3.4-5.0); ALKALINE PHOSPHATASE 101 U/L (45-117); ANION GAP 8 mmol/L (5-15); BILIRUBIN,TOTAL 0.8 mg/dL (0.2-1.0); CALCIUM 7.3 mg/dL (8.5-10.1); CREATININE 1.05 mg/dL (0.7-1.3); TOTAL PROTEIN 5.1 g/dL (6.4-8.2)
[2017-11-18 05:24] LABS: MEAN CORPUSCULAR HGB CONC 32.4 g/dL (33.2-36.2); MEAN CORPUSCULAR VOLUME 89.4 fL (81-97); MEAN PLATELET VOLUME 8.6 fL (7.4-10.4); PLATELET COUNT 313 x10^3/uL (130-400); RED BLOOD COUNT 4.23 x10^6/uL (4.38-5.82); RED CELL DISTRIBUTION WIDTH 13.7 % (9.4-14.8)
[2017-11-18] MEDS: ASPIRIN 325 MG TABLET PO SCH (06:14)
[2017-11-18] MEDS: CARVEDILOL 3.125 MG TABLET PO SCH ×2 (06:14→18:20)
[2017-11-18 07:13] VITALS: BP 146/74
[2017-11-18] MEDS: PANTOPRAZOLE 40 MG IV IV SCH ×2 (08:23→22:25)
[2017-11-18] MEDS: SODIUM CHLORIDE FLUSH 10ML SYR IVF SCH ×2 (08:25→22:27)
[2017-11-18] MEDS: INSULIN LISPRO 100 UNITS/ML, PEN SQ-INSULIN SCH ×4 (08:27→22:26)
[2017-11-18] MEDS: OFLOXACIN OPHTH 0.3%, 5ML EACHEYE SCH ×3 (08:28→22:25)
[2017-11-18 09:15] LABS: MD YES
[2017-11-18 09:24] LABS: LYMPH#(MANUAL) 69.34 x10^3/uL (1-3.4); LYMPHS% (MANUAL) 88 % (22-44); MONOS#(MANUAL) 0.79 x10^3/uL (0.3-2.7); MONOS% (MANUAL) 1 % (2-9); SEG#(MANUAL) 9.46 x10^3/uL (1.8-6.8); SEGS% (MANUAL) 12 % (42-75)
[2017-11-18 09:25] LABS: ANISOCYTOSIS 1+
[2017-11-18 09:26] LABS: <PLATELET ESTIMATE> ADEQUATE; SMUDGE CELLS 2+
[2017-11-18 09:27] LABS: LARGE PLATELETS 1+
[2017-11-18] MEDS: ERTAPENEM 1 GM in SODIUM CHLORIDE 0.9% 50 ML IV SCH (12:58)
[2017-11-18] MEDS: FONDAPARINUX 2.5 MG/0.5 ML SQ SCH (12:59)
[2017-11-18 13:26] VITALS: BP 164/70
[2017-11-18 18:26] VITALS: BP 143/67
[2017-11-18] MEDS: POTASSIUM CHLORIDE 10% 40 MEQ/30 ML UDC PO ONE ×2 (20:30→23:03)
[2017-11-18] MEDS: THIAMINE 100MG TABLET PO SCH ×2 (21:00→22:26)
[2017-11-18] MEDS: ATORVASTATIN 80 MG TABLET PO SCH ×2 (21:00→22:26)
[2017-11-18] MEDS: FOLIC ACID 1 MG TABLET PO SCH ×2 (21:00→22:25)
[2017-11-18] MEDS ORDERED: POTASSIUM CHLORIDE 20 MEQ TAB.ER.PRT ONE (22:22)
[2017-11-18] MEDS: AMIODARONE 200 MG TABLET PO SCH (22:26)
[2017-11-19 01:36] VITALS: BP 159/83
[2017-11-19] MEDS: CARVEDILOL 3.125 MG TABLET PO SCH ×2 (05:44→17:27)
[2017-11-19] MEDS: ASPIRIN 81 MG TABLET EC PO SCH (05:44)
[2017-11-19 06:31] VITALS: BP 163/67
[2017-11-19] MEDS: ACETAMINOPHEN 325 MG TABLET PO PRN (06:45)
[2017-11-19] MEDS: INSULIN LISPRO 100 UNITS/ML, PEN SQ-INSULIN SCH ×4 (07:00→21:58)
[2017-11-19 07:08] LABS: ALANINE AMINOTRANSFERASE 15 U/L (12-78); ALBUMIN 1.9 g/dL (3.4-5.0); ANION GAP 6 mmol/L (5-15); CALCIUM 7.3 mg/dL (8.5-10.1); CHLORIDE 115 mmol/L (98-107); CREATININE 0.96 mg/dL (0.7-1.3)
[2017-11-19 07:10] LABS: ALKALINE PHOSPHATASE 102 U/L (45-117); BILIRUBIN,TOTAL 0.4 mg/dL (0.2-1.0); TOTAL PROTEIN 5.2 g/dL (6.4-8.2)
[2017-11-19 08:14] LABS: CLOSTRIDIUM DIFFICILE ANTIGEN NEGATIVE; CLOSTRIDIUM DIFFICILE TOXIN NEGATIVE (Negative)
[2017-11-19 08:38] LABS: MD YES; MEAN CORPUSCULAR HEMOGLOBIN 28.9 pg (27.5-34.5); MEAN CORPUSCULAR HGB CONC 32.1 g/dL (33.2-36.2); MEAN CORPUSCULAR VOLUME 90.1 fL (81-97); MEAN PLATELET VOLUME 8.4 fL (7.4-10.4); PLATELET COUNT 351 x10^3/uL (130-400); RED BLOOD COUNT 4.19 x10^6/uL (4.38-5.82); RED CELL DISTRIBUTION WIDTH 13.7 % (9.4-14.8)
[2017-11-19 08:46] LABS: BAND#(MANUAL) 1.41 x10^3/uL; BANDS%(MANUAL) 2 % (0-7); LYMPHS% (MANUAL) 84 % (22-44); METAMYELOCYTES# (MANUAL) 1.41 x10^3/uL (0-0); METAMYELOCYTES% (MANUAL) 2 % (0-1); SEG#(MANUAL) 8.47 x10^3/uL (1.8-6.8); SEGS% (MANUAL) 12 % (42-75)
[2017-11-19 08:47] LABS: <PLATELET ESTIMATE> ADEQUATE; <PLT MORPHOLOGY> NORMAL PLT MORPH; ANISOCYTOSIS 1+; SMUDGE CELLS 2+
[2017-11-19] MEDS: SODIUM CHLORIDE FLUSH 10ML SYR IVF SCH ×2 (08:52→21:42)
[2017-11-19] MEDS: ERTAPENEM 1 GM in SODIUM CHLORIDE 0.9% 50 ML IV SCH (08:52)
[2017-11-19] MEDS: POTASSIUM CHLORIDE 10% 40 MEQ/30 ML UDC PO SCH ×2 (08:52→09:00)
[2017-11-19] MEDS: OFLOXACIN OPHTH 0.3%, 5ML EACHEYE SCH (08:52)
[2017-11-19] MEDS: AMIODARONE 200 MG TABLET PO SCH ×3 (08:52→21:43)
[2017-11-19] MEDS: PANTOPRAZOLE 40 MG IV IV SCH ×2 (08:52→21:42)
[2017-11-19] MEDS: FENTANYL 50 MCG PATCH TD SCH (08:58)
[2017-11-19] MEDS: POTASSIUM CHLORIDE 10% 40 MEQ/30 ML UDC NG SCH (11:47)
[2017-11-19 12:07] VITALS: BP 170/72
[2017-11-19] MEDS: FONDAPARINUX 2.5 MG/0.5 ML SQ SCH (13:20)
[2017-11-19 20:05] VITALS: BP 147/67
[2017-11-19] MEDS: ATORVASTATIN 80 MG TABLET PO SCH (21:43)
[2017-11-19] MEDS: FOLIC ACID 1 MG TABLET PO SCH (21:43)
[2017-11-19] MEDS: THIAMINE 100MG TABLET PO SCH (21:43)
[2017-11-20] MEDS: POTASSIUM CHLORIDE 10% 40 MEQ/30 ML UDC NG SCH (00:02)
[2017-11-20 03:01] VITALS: BP 153/65
[2017-11-20] MEDS: ASPIRIN 81 MG TABLET EC PO SCH (05:06)
[2017-11-20] MEDS: CARVEDILOL 3.125 MG TABLET PO SCH ×2 (05:06→18:04)
[2017-11-20 06:22] VITALS: BP 150/78
[2017-11-20] MEDS: INSULIN LISPRO 100 UNITS/ML, PEN SQ-INSULIN SCH ×4 (08:09→21:29)
[2017-11-20] MEDS: AMIODARONE 200 MG TABLET PO SCH ×2 (08:09→21:10)
[2017-11-20] MEDS: ERTAPENEM 1 GM in SODIUM CHLORIDE 0.9% 50 ML IV SCH (08:10)
[2017-11-20] MEDS: SODIUM CHLORIDE FLUSH 10ML SYR IVF SCH ×2 (08:10→21:09)
[2017-11-20] MEDS: PANTOPRAZOLE 40 MG IV IV SCH (08:10)
[2017-11-20 09:10] LABS: MEAN CORPUSCULAR HEMOGLOBIN 28.7 pg (27.5-34.5); MEAN CORPUSCULAR HGB CONC 31.8 g/dL (33.2-36.2); MEAN CORPUSCULAR VOLUME 90.2 fL (81-97); MEAN PLATELET VOLUME 9.3 fL (7.4-10.4); PLATELET COUNT 384 x10^3/uL (130-400); RED BLOOD COUNT 4.23 x10^6/uL (4.38-5.82); RED CELL DISTRIBUTION WIDTH 14.1 % (9.4-14.8)
[2017-11-20 09:39] LABS: ANION GAP 5 mmol/L (5-15); CALCIUM 7.4 mg/dL (8.5-10.1); CHLORIDE 118 mmol/L (98-107)
[2017-11-20 09:41] LABS: CREATININE 1.01 mg/dL (0.7-1.3)
[2017-11-20 09:48] LABS: MD YES
[2017-11-20 09:51] LABS: LYMPHS% (MANUAL) 90 % (22-44); SEGS% (MANUAL) 10 % (42-75)
[2017-11-20 09:52] LABS: <PLATELET ESTIMATE> ADEQUATE; <PLT MORPHOLOGY> NORMAL PLT MORPH; ANISOCYTOSIS 1+; HYPOCHROMIA 1+
[2017-11-20] MEDS: LISINOPRIL 10 MG TABLET PO SCH ×2 (11:33→21:10)
[2017-11-20] MEDS: ENOXAPARIN 40 MG/0.4 ML SQ SCH (11:33)
[2017-11-20 13:00] VITALS: BP 143/71
[2017-11-20] MEDS: ACETAMINOPHEN 325 MG TABLET PO PRN (15:54)
[2017-11-20 20:33] VITALS: BP 148/64
[2017-11-20] MEDS ORDERED: RISPERIDONE 0.5 MG TABLET ONE (21:03)
[2017-11-20] MEDS: FOLIC ACID 1 MG TABLET PO SCH (21:10)
[2017-11-20] MEDS: THIAMINE 100MG TABLET PO SCH (21:10)
[2017-11-20] MEDS: RISPERIDONE 1 MG TABLET PO SCH (21:11)
[2017-11-20] MEDS: ATORVASTATIN 80 MG TABLET PO SCH (21:11)
[2017-11-21 01:33] VITALS: BP 143/67
[2017-11-21 05:20] LABS: CHLORIDE 113 mmol/L (98-107)
[2017-11-21 05:24] LABS: ANION GAP 8 mmol/L (5-15); CALCIUM 7.4 mg/dL (8.5-10.1); CREATININE 0.77 mg/dL (0.7-1.3)
[2017-11-21 06:30] VITALS: BP 140/77
[2017-11-21] MEDS: RISPERIDONE 1 MG TABLET PO SCH ×2 (09:00→20:44)
[2017-11-21] MEDS: LISINOPRIL 10 MG TABLET PO SCH ×2 (09:00→20:44)
[2017-11-21] MEDS ORDERED: RISPERIDONE 0.5 MG TABLET ONE ×2 (09:25→20:28)
[2017-11-21] MEDS: ENOXAPARIN 40 MG/0.4 ML SQ SCH (09:28)
[2017-11-21] MEDS: INSULIN LISPRO 100 UNITS/ML, PEN SQ-INSULIN SCH ×4 (09:28→20:42)
[2017-11-21] MEDS: ASPIRIN 81 MG TABLET EC PO SCH (09:28)
[2017-11-21] MEDS: AMIODARONE 200 MG TABLET PO SCH ×2 (09:28→20:43)
[2017-11-21] MEDS: SODIUM CHLORIDE FLUSH 10ML SYR IVF SCH ×2 (09:29→20:41)
[2017-11-21] MEDS: CARVEDILOL 3.125 MG TABLET PO SCH ×2 (09:29→17:02)
[2017-11-21 14:02] VITALS: BP 117/63
[2017-11-21 20:13] VITALS: BP 128/63
[2017-11-21] MEDS: ATORVASTATIN 80 MG TABLET PO SCH (20:43)
[2017-11-21] MEDS: FOLIC ACID 1 MG TABLET PO SCH (20:43)
[2017-11-21] MEDS: THIAMINE 100MG TABLET PO SCH (20:44)
[2017-11-22 00:51] VITALS: BP 131/63
[2017-11-22] MEDS: ASPIRIN 81 MG TABLET EC PO SCH (05:09)
[2017-11-22] MEDS: CARVEDILOL 3.125 MG TABLET PO SCH ×2 (05:09→18:21)
[2017-11-22 07:29] VITALS: BP 119/61
[2017-11-22] MEDS: AMIODARONE 200 MG TABLET PO SCH ×2 (07:56→21:20)
[2017-11-22] MEDS: ACETAMINOPHEN 325 MG TABLET PO PRN (07:56)
[2017-11-22] MEDS: RISPERIDONE 1 MG TABLET PO SCH ×2 (07:56→21:00)
[2017-11-22] MEDS: SODIUM CHLORIDE FLUSH 10ML SYR IVF SCH ×2 (07:57→21:19)
[2017-11-22] MEDS: ENOXAPARIN 40 MG/0.4 ML SQ SCH (07:57)
[2017-11-22] MEDS: INSULIN LISPRO 100 UNITS/ML, PEN SQ-INSULIN SCH ×4 (07:58→21:20)
[2017-11-22] MEDS: LISINOPRIL 10 MG TABLET PO SCH ×2 (08:00→21:20)
[2017-11-22] MEDS: CHOLESTYRAMINE LIGHT 4GM PACKET PO SCH ×2 (12:12→21:21)
[2017-11-22] MEDS ORDERED: AMIO200T42 PO (15:31)
[2017-11-22] MEDS ORDERED: ENOX40SY4 SQ (15:31)
[2017-11-22] MEDS ORDERED: RISP1TAB45 PO (15:31)
[2017-11-22] MEDS ORDERED: FOLI-17 PO (15:31)
[2017-11-22] MEDS ORDERED: LISI-167 PO (15:31)
[2017-11-22] MEDS ORDERED: ASPI-621 PO (15:31)
[2017-11-22] MEDS ORDERED: CHOL239. PO (15:31)
[2017-11-22] MEDS ORDERED: THIA100T6 PO (15:31)
[2017-11-22] MEDS ORDERED: INSU100I11 SQ-INSULIN (15:31)
[2017-11-22] MEDS ORDERED: ATOR-2 PO (15:31)
[2017-11-22] MEDS ORDERED: CARV3.1212 PO (15:31)
[2017-11-22] MEDS ORDERED: GLYB2.5T2 PO (15:31)
[2017-11-22 16:02] VITALS: BP 120/66
[2017-11-22 19:25] VITALS: BP 147/68
[2017-11-22] MEDS ORDERED: RISPERIDONE 0.5 MG TABLET ONE (21:03)
[2017-11-22] MEDS: THIAMINE 100MG TABLET PO SCH (21:20)
[2017-11-22] MEDS: ATORVASTATIN 80 MG TABLET PO SCH (21:20)
[2017-11-22] MEDS: FOLIC ACID 1 MG TABLET PO SCH (21:21)
[2017-11-23 00:57] VITALS: BP 145/72
[2017-11-23] MEDS: ASPIRIN 81 MG TABLET EC PO SCH (05:06)
[2017-11-23] MEDS: CARVEDILOL 3.125 MG TABLET PO SCH ×3 (05:06→17:21)
[2017-11-23 05:14] LABS: MEAN CORPUSCULAR HEMOGLOBIN 29.2 pg (27.5-34.5); MEAN CORPUSCULAR HGB CONC 32.6 g/dL (33.2-36.2); MEAN CORPUSCULAR VOLUME 89.6 fL (81-97); MEAN PLATELET VOLUME 9.6 fL (7.4-10.4); PLATELET COUNT 354 x10^3/uL (130-400)
[2017-11-23 05:20] LABS: ANION GAP 6 mmol/L (5-15); CALCIUM 7.5 mg/dL (8.5-10.1); CHLORIDE 109 mmol/L (98-107)
[2017-11-23 05:45] LABS: MD YES
[2017-11-23 05:47] LABS: ANISOCYTOSIS 1+; LYMPH#(MANUAL) 40.69 x10^3/uL (1-3.4); LYMPHS% (MANUAL) 79 % (22-44); SEG#(MANUAL) 10.82 x10^3/uL (1.8-6.8); SEGS% (MANUAL) 21 % (42-75)
[2017-11-23 05:48] LABS: <PLATELET ESTIMATE> ADEQUATE; <PLT MORPHOLOGY> NORMAL PLT MORPH; SMUDGE CELLS 2+
[2017-11-23 07:07] VITALS: BP 145/62
[2017-11-23] MEDS: INSULIN LISPRO 100 UNITS/ML, PEN SQ-INSULIN SCH ×4 (08:02→21:00)
[2017-11-23] MEDS ORDERED: RISPERIDONE 2 MG TABLET ONE (09:47)
[2017-11-23] MEDS: ENOXAPARIN 40 MG/0.4 ML SQ SCH (09:57)
[2017-11-23] MEDS: RISPERIDONE 1 MG TABLET PO SCH ×2 (09:58→21:00)
[2017-11-23] MEDS: LISINOPRIL 10 MG TABLET PO SCH ×2 (09:58→21:00)
[2017-11-23] MEDS: AMIODARONE 200 MG TABLET PO SCH (09:59)
[2017-11-23] MEDS: metFORMIN 500 MG TABLET PO SCH ×3 (10:00→17:21)
[2017-11-23] MEDS: SODIUM CHLORIDE FLUSH 10ML SYR IVF SCH ×2 (10:00→21:00)
[2017-11-23] MEDS: CHOLESTYRAMINE LIGHT 4GM PACKET PO SCH ×2 (11:28→21:00)
[2017-11-23 13:23] VITALS: BP 123/67
[2017-11-23 19:26] VITALS: BP 165/63
[2017-11-23] MEDS: FOLIC ACID 1 MG TABLET PO SCH (21:00)
[2017-11-23] MEDS: THIAMINE 100MG TABLET PO SCH (21:00)
[2017-11-23] MEDS: ATORVASTATIN 80 MG TABLET PO SCH (21:00)
[2017-11-24] MEDS: ACETAMINOPHEN 325 MG TABLET PO PRN (01:19)
[2017-11-24 03:10] VITALS: BP 130/54
[2017-11-24] MEDS: CARVEDILOL 3.125 MG TABLET PO SCH ×2 (05:24→17:25)
[2017-11-24] MEDS: ASPIRIN 81 MG TABLET EC PO SCH (05:24)
[2017-11-24] MEDS ORDERED: RISPERIDONE 2 MG TABLET ONE (07:57)
[2017-11-24] MEDS: INSULIN LISPRO 100 UNITS/ML, PEN SQ-INSULIN SCH ×4 (08:13→20:49)
[2017-11-24] MEDS: ENOXAPARIN 40 MG/0.4 ML SQ SCH (08:14)
[2017-11-24] MEDS: RISPERIDONE 1 MG TABLET PO SCH ×2 (08:14→20:42)
[2017-11-24] MEDS: AMIODARONE 200 MG TABLET PO SCH (08:15)
[2017-11-24] MEDS: metFORMIN 500 MG TABLET PO SCH ×2 (08:17→17:25)
[2017-11-24] MEDS: LISINOPRIL 10 MG TABLET PO SCH ×2 (08:17→20:42)
[2017-11-24 08:25] VITALS: BP 164/67
[2017-11-24] MEDS: CHOLESTYRAMINE LIGHT 4GM PACKET PO SCH ×2 (09:00→20:42)
[2017-11-24] MEDS: SODIUM CHLORIDE FLUSH 10ML SYR IVF SCH ×2 (09:00→20:41)
[2017-11-24] MEDS ORDERED: REGADENOSON 0.4 MG/5 ML SYRINGE ONE (11:32)
[2017-11-24 15:56] VITALS: BP 153/63
[2017-11-24 18:58] VITALS: BP 157/71
[2017-11-24] MEDS ORDERED: RISPERIDONE 0.5 MG TABLET ONE (20:37)
[2017-11-24] MEDS: ATORVASTATIN 80 MG TABLET PO SCH (20:43)
[2017-11-24] MEDS: THIAMINE 100MG TABLET PO SCH (20:43)
[2017-11-24] MEDS: FOLIC ACID 1 MG TABLET PO SCH (20:43)
[2017-11-25 00:31] VITALS: BP 161/51
[2017-11-25] MEDS: CARVEDILOL 3.125 MG TABLET PO SCH ×2 (05:10→17:23)
[2017-11-25] MEDS: ASPIRIN 81 MG TABLET EC PO SCH (05:10)
[2017-11-25] MEDS: ACETAMINOPHEN 325 MG TABLET PO PRN ×2 (05:11→20:25)
[2017-11-25 05:56] LABS: MEAN CORPUSCULAR HEMOGLOBIN 29.3 pg (27.5-34.5); MEAN CORPUSCULAR HGB CONC 32.7 g/dL (33.2-36.2); MEAN CORPUSCULAR VOLUME 89.5 fL (81-97); MEAN PLATELET VOLUME 10.2 fL (7.4-10.4); PLATELET COUNT 377 x10^3/uL (130-400); RED BLOOD COUNT 3.89 x10^6/uL (4.38-5.82); RED CELL DISTRIBUTION WIDTH 13.7 % (9.4-14.8)
[2017-11-25 06:00] LABS: ALANINE AMINOTRANSFERASE 66 U/L (12-78); ALBUMIN 1.9 g/dL (3.4-5.0); ANION GAP 7 mmol/L (5-15); CALCIUM 7.9 mg/dL (8.5-10.1); CHLORIDE 112 mmol/L (98-107); CREATININE 0.62 mg/dL (0.7-1.3)
[2017-11-25 06:03] LABS: ALKALINE PHOSPHATASE 101 U/L (45-117); BILIRUBIN,TOTAL 0.5 mg/dL (0.2-1.0)
[2017-11-25 06:20] LABS: MD YES
[2017-11-25 06:21] LABS: LYMPHS% (MANUAL) 75 % (22-44); MONOS#(MANUAL) 1.38 x10^3/uL (0.3-2.7); MONOS% (MANUAL) 3 % (2-9); SEG#(MANUAL) 10.12 x10^3/uL (1.8-6.8); SEGS% (MANUAL) 22 % (42-75)
[2017-11-25 06:22] LABS: <PLATELET ESTIMATE> ADEQUATE; ANISOCYTOSIS 1+; SMALL PLATELETS 1+; SMUDGE CELLS 2+
[2017-11-25] MEDS: INSULIN LISPRO 100 UNITS/ML, PEN SQ-INSULIN SCH ×4 (07:00→21:00)
[2017-11-25] MEDS ORDERED: RISPERIDONE 0.5 MG TABLET ONE ×2 (08:16→20:10)
[2017-11-25] MEDS: CHOLESTYRAMINE LIGHT 4GM PACKET PO SCH (08:18)
[2017-11-25] MEDS: ENOXAPARIN 40 MG/0.4 ML SQ SCH (08:19)
[2017-11-25] MEDS: LISINOPRIL 10 MG TABLET PO SCH ×2 (08:19→20:26)
[2017-11-25] MEDS: RISPERIDONE 1 MG TABLET PO SCH ×2 (08:19→20:26)
[2017-11-25] MEDS: metFORMIN 500 MG TABLET PO SCH ×3 (08:19→17:23)
[2017-11-25] MEDS: AMIODARONE 200 MG TABLET PO SCH (08:19)
[2017-11-25] MEDS: SODIUM CHLORIDE FLUSH 10ML SYR IVF SCH ×2 (08:20→20:36)
[2017-11-25 09:02] VITALS: BP 151/73
[2017-11-25 12:15] VITALS: BP 152/69
[2017-11-25 13:39] VITALS: BP 148/73
[2017-11-25 18:54] VITALS: BP 155/71
[2017-11-25] MEDS: THIAMINE 100MG TABLET PO SCH (20:26)
[2017-11-25] MEDS: ATORVASTATIN 80 MG TABLET PO SCH (20:26)
[2017-11-25] MEDS: FOLIC ACID 1 MG TABLET PO SCH (20:35)
[2017-11-26 01:58] VITALS: BP 149/70
[2017-11-26] MEDS: ACETAMINOPHEN 325 MG TABLET PO PRN ×4 (02:48→20:13)
[2017-11-26] MEDS: CHOLESTYRAMINE LIGHT 4GM PACKET PO SCH ×2 (02:49→07:55)
[2017-11-26] MEDS: CARVEDILOL 3.125 MG TABLET PO SCH ×2 (05:36→17:09)
[2017-11-26] MEDS: ASPIRIN 81 MG TABLET EC PO SCH (05:36)
[2017-11-26 06:58] VITALS: BP 162/74
[2017-11-26] MEDS: INSULIN LISPRO 100 UNITS/ML, PEN SQ-INSULIN SCH ×4 (07:48→21:06)
[2017-11-26] MEDS ORDERED: RISPERIDONE 0.5 MG TABLET ONE ×2 (07:51→20:03)
[2017-11-26] MEDS: ENOXAPARIN 40 MG/0.4 ML SQ SCH (07:55)
[2017-11-26] MEDS: LISINOPRIL 10 MG TABLET PO SCH ×2 (07:56→20:13)
[2017-11-26] MEDS: RISPERIDONE 1 MG TABLET PO SCH ×2 (07:56→20:12)
[2017-11-26] MEDS: metFORMIN 500 MG TABLET PO SCH ×2 (07:56→17:09)
[2017-11-26] MEDS: AMIODARONE 200 MG TABLET PO SCH (07:57)
[2017-11-26] MEDS: SODIUM CHLORIDE FLUSH 10ML SYR IVF SCH ×2 (07:57→20:12)
[2017-11-26] MEDS ORDERED: LOPERAMIDE 2 MG CAPSULE PO PRN (13:30)
[2017-11-26 14:06] VITALS: BP 176/79
[2017-11-26 17:08] VITALS: BP 160/66
[2017-11-26 19:25] VITALS: BP 150/65
[2017-11-26] MEDS: FOLIC ACID 1 MG TABLET PO SCH (20:12)
[2017-11-26] MEDS: ATORVASTATIN 80 MG TABLET PO SCH (20:13)
[2017-11-26] MEDS: THIAMINE 100MG TABLET PO SCH (20:51)
[2017-11-27] MEDS: TEMAZEPAM 15 MG CAPSULE PO PRN (00:47)
[2017-11-27 01:43] VITALS: BP 175/73
[2017-11-27 05:16] LABS: MEAN CORPUSCULAR HEMOGLOBIN 29.5 pg (27.5-34.5); MEAN CORPUSCULAR HGB CONC 33.3 g/dL (33.2-36.2); MEAN CORPUSCULAR VOLUME 88.6 fL (81-97); MEAN PLATELET VOLUME 9.8 fL (7.4-10.4); PLATELET COUNT 355 x10^3/uL (130-400); RED CELL DISTRIBUTION WIDTH 13.7 % (9.4-14.8)
[2017-11-27 05:25] LABS: ANION GAP 5 mmol/L (5-15); CALCIUM 7.7 mg/dL (8.5-10.1); CHLORIDE 112 mmol/L (98-107)
[2017-11-27 05:26] LABS: CREATININE 0.59 mg/dL (0.7-1.3)
[2017-11-27 06:06] LABS: MD YES
[2017-11-27 06:14] LABS: LYMPH#(MANUAL) 19.61 x10^3/uL (1-3.4); LYMPHS% (MANUAL) 42 % (22-44); MONOS% (MANUAL) 6 % (2-9); REACTIVE LYMPHS # (MANUAL) 1.87 x10^3/uL (0-0); REACTIVE LYMPHS % (MANUAL) 4 % (0-0); SEG#(MANUAL) 22.42 x10^3/uL (1.8-6.8); SEGS% (MANUAL) 48 % (42-75)
[2017-11-27 06:15] LABS: <PLATELET ESTIMATE> ADEQUATE; ANISOCYTOSIS 1+; SMUDGE CELLS 2+
[2017-11-27 06:18] LABS: SMALL PLATELETS 1+
[2017-11-27] MEDS: CHOLESTYRAMINE LIGHT 4GM PACKET PO SCH ×3 (06:18→22:29)
[2017-11-27] MEDS: ASPIRIN 81 MG TABLET EC PO SCH (06:39)
[2017-11-27] MEDS: CARVEDILOL 3.125 MG TABLET PO SCH ×2 (06:39→17:07)
[2017-11-27] MEDS: INSULIN LISPRO 100 UNITS/ML, PEN SQ-INSULIN SCH ×4 (06:44→21:00)
[2017-11-27 07:10] VITALS: BP 134/71
[2017-11-27] MEDS ORDERED: RISPERIDONE 0.5 MG TABLET ONE ×2 (08:35→20:15)
[2017-11-27] MEDS: metFORMIN 500 MG TABLET PO SCH ×2 (08:38→17:06)
[2017-11-27] MEDS: RISPERIDONE 1 MG TABLET PO SCH ×2 (08:39→20:21)
[2017-11-27] MEDS: AMIODARONE 200 MG TABLET PO SCH (08:40)
[2017-11-27] MEDS: SODIUM CHLORIDE FLUSH 10ML SYR IVF SCH ×2 (08:45→22:29)
[2017-11-27] MEDS: ENOXAPARIN 40 MG/0.4 ML SQ SCH (08:47)
[2017-11-27] MEDS: LISINOPRIL 10 MG TABLET PO SCH ×2 (08:49→20:21)
[2017-11-27 12:54] VITALS: BP 122/60
[2017-11-27 20:19] VITALS: BP 143/65
[2017-11-27] MEDS: ATORVASTATIN 80 MG TABLET PO SCH (20:22)
[2017-11-27] MEDS: FOLIC ACID 1 MG TABLET PO SCH (20:32)
[2017-11-27] MEDS: THIAMINE 100MG TABLET PO SCH (20:32)
[2017-11-28 00:46] VITALS: BP 152/66
[2017-11-28] MEDS: ACETAMINOPHEN 325 MG TABLET PO PRN ×3 (05:07→21:24)
[2017-11-28] MEDS: CARVEDILOL 3.125 MG TABLET PO SCH ×2 (05:09→17:33)
[2017-11-28] MEDS: ASPIRIN 81 MG TABLET EC PO SCH (05:09)
[2017-11-28] MEDS: INSULIN LISPRO 100 UNITS/ML, PEN SQ-INSULIN SCH ×4 (07:00→21:00)
[2017-11-28 07:55] VITALS: BP 112/68
[2017-11-28] MEDS: CHOLESTYRAMINE LIGHT 4GM PACKET PO SCH ×2 (09:00→21:00)
[2017-11-28] MEDS: SODIUM CHLORIDE FLUSH 10ML SYR IVF SCH ×2 (09:00→21:00)
[2017-11-28] MEDS: THIAMINE 100MG TABLET PO SCH (09:00)
[2017-11-28] MEDS ORDERED: RISPERIDONE 0.5 MG TABLET ONE ×2 (09:16→21:17)
[2017-11-28] MEDS: LISINOPRIL 10 MG TABLET PO SCH ×2 (09:20→21:24)
[2017-11-28] MEDS: AMIODARONE 200 MG TABLET PO SCH (09:21)
[2017-11-28] MEDS: ENOXAPARIN 40 MG/0.4 ML SQ SCH (09:21)
[2017-11-28] MEDS: metFORMIN 500 MG TABLET PO SCH ×2 (09:21→17:33)
[2017-11-28] MEDS: RISPERIDONE 1 MG TABLET PO SCH ×2 (09:23→21:00)
[2017-11-28 12:55] VITALS: BP 121/61
[2017-11-28] MEDS: TAMSULOSIN 0.4 MG CAP.ER.24H PO SCH (17:33)
[2017-11-28 18:22] VITALS: BP 148/71
[2017-11-28] MEDS: ATORVASTATIN 80 MG TABLET PO SCH (21:24)
[2017-11-28] MEDS: FOLIC ACID 1 MG TABLET PO SCH (21:26)
[2017-11-29 02:24] VITALS: BP 151/63
[2017-11-29] MEDS: ACETAMINOPHEN 325 MG TABLET PO PRN ×2 (06:13→19:25)
[2017-11-29] MEDS: ASPIRIN 81 MG TABLET EC PO SCH (06:13)
[2017-11-29] MEDS: CARVEDILOL 3.125 MG TABLET PO SCH ×2 (06:13→18:25)
[2017-11-29] MEDS: INSULIN LISPRO 100 UNITS/ML, PEN SQ-INSULIN SCH ×4 (07:30→21:00)
[2017-11-29 08:02] VITALS: BP 145/71
[2017-11-29] MEDS: SODIUM CHLORIDE FLUSH 10ML SYR IVF SCH ×2 (09:00→21:00)
[2017-11-29] MEDS: RISPERIDONE 1 MG TABLET PO SCH ×2 (09:00→21:00)
[2017-11-29] MEDS ORDERED: RISPERIDONE 0.5 MG TABLET ONE ×2 (09:46→21:01)
[2017-11-29] MEDS: CHOLESTYRAMINE LIGHT 4GM PACKET PO SCH ×2 (09:51→21:06)
[2017-11-29] MEDS: TAMSULOSIN 0.4 MG CAP.ER.24H PO SCH (09:52)
[2017-11-29] MEDS: metFORMIN 500 MG TABLET PO SCH ×2 (09:53→17:06)
[2017-11-29] MEDS: ENOXAPARIN 40 MG/0.4 ML SQ SCH (09:53)
[2017-11-29] MEDS: AMIODARONE 200 MG TABLET PO SCH (09:53)
[2017-11-29] MEDS: LISINOPRIL 10 MG TABLET PO SCH ×2 (09:54→21:06)
[2017-11-29 12:57] VITALS: BP 154/73
[2017-11-29 19:08] VITALS: BP 127/60
[2017-11-29] MEDS: ATORVASTATIN 80 MG TABLET PO SCH (21:06)
[2017-11-29] MEDS: THIAMINE 100MG TABLET PO SCH (21:07)
[2017-11-29] MEDS: FOLIC ACID 1 MG TABLET PO SCH (21:07)
[2017-11-30 00:51] VITALS: BP 159/76
[2017-11-30] MEDS: ACETAMINOPHEN 325 MG TABLET PO PRN ×5 (04:03→22:32)
[2017-11-30] MEDS: ASPIRIN 81 MG TABLET EC PO SCH (06:09)
[2017-11-30] MEDS: CARVEDILOL 3.125 MG TABLET PO SCH ×2 (06:09→17:32)
[2017-11-30] MEDS: INSULIN LISPRO 100 UNITS/ML, PEN SQ-INSULIN SCH ×4 (06:12→21:00)
[2017-11-30 07:33] VITALS: BP 144/68
[2017-11-30] MEDS ORDERED: RISPERIDONE 0.5 MG TABLET ONE ×2 (08:46→20:56)
[2017-11-30] MEDS: ENOXAPARIN 40 MG/0.4 ML SQ SCH (08:53)
[2017-11-30] MEDS: metFORMIN 500 MG TABLET PO SCH ×2 (08:53→17:31)
[2017-11-30] MEDS: TAMSULOSIN 0.4 MG CAP.ER.24H PO SCH (08:54)
[2017-11-30] MEDS: LISINOPRIL 10 MG TABLET PO SCH ×2 (08:55→21:00)
[2017-11-30] MEDS: AMIODARONE 200 MG TABLET PO SCH (08:55)
[2017-11-30] MEDS: CHOLESTYRAMINE LIGHT 4GM PACKET PO SCH ×2 (08:55→21:00)
[2017-11-30] MEDS: RISPERIDONE 1 MG TABLET PO SCH ×2 (08:56→20:59)
[2017-11-30] MEDS: SODIUM CHLORIDE FLUSH 10ML SYR IVF SCH ×2 (08:59→21:00)
[2017-11-30 13:27] VITALS: BP 148/66
[2017-11-30 19:32] VITALS: BP 140/66
[2017-11-30] MEDS: ATORVASTATIN 80 MG TABLET PO SCH (21:00)
[2017-11-30] MEDS: THIAMINE 100MG TABLET PO SCH (21:00)
[2017-11-30] MEDS: FOLIC ACID 1 MG TABLET PO SCH (21:00)
[2017-12-01 01:17] VITALS: BP 145/66
[2017-12-01] MEDS: ACETAMINOPHEN 325 MG TABLET PO PRN ×6 (02:21→18:50)
[2017-12-01] MEDS: CARVEDILOL 3.125 MG TABLET PO SCH ×2 (06:13→16:19)
[2017-12-01] MEDS: ASPIRIN 81 MG TABLET EC PO SCH (06:13)
[2017-12-01] MEDS: INSULIN LISPRO 100 UNITS/ML, PEN SQ-INSULIN SCH ×4 (06:14→20:39)
[2017-12-01 08:11] VITALS: BP 152/69
[2017-12-01] MEDS: CHOLESTYRAMINE LIGHT 4GM PACKET PO SCH ×2 (08:25→22:13)
[2017-12-01] MEDS: ENOXAPARIN 40 MG/0.4 ML SQ SCH (08:25)
[2017-12-01] MEDS: TAMSULOSIN 0.4 MG CAP.ER.24H PO SCH (08:25)
[2017-12-01] MEDS: SODIUM CHLORIDE FLUSH 10ML SYR IVF SCH ×2 (08:26→20:39)
[2017-12-01] MEDS: RISPERIDONE 1 MG TABLET PO SCH ×2 (08:27→20:29)
[2017-12-01] MEDS: AMIODARONE 200 MG TABLET PO SCH (08:28)
[2017-12-01] MEDS: LISINOPRIL 10 MG TABLET PO SCH ×2 (08:30→20:29)
[2017-12-01] MEDS: metFORMIN 500 MG TABLET PO SCH ×2 (08:30→16:19)
[2017-12-01 13:01] VITALS: BP 142/73
[2017-12-01] MEDS ORDERED: ACETAMINOPHEN 325 MG TABLET ONE (14:47)
[2017-12-01 18:57] VITALS: BP 138/73
[2017-12-01] MEDS ORDERED: RISPERIDONE 0.5 MG TABLET ONE (20:23)
[2017-12-01] MEDS: FOLIC ACID 1 MG TABLET PO SCH (20:28)
[2017-12-01] MEDS: ATORVASTATIN 80 MG TABLET PO SCH (20:28)
[2017-12-01] MEDS: THIAMINE 100MG TABLET PO SCH (20:40)
[2017-12-02 02:35] VITALS: BP 139/70
[2017-12-02 05:41] LABS: MEAN CORPUSCULAR HEMOGLOBIN 28.6 pg (27.5-34.5); MEAN CORPUSCULAR VOLUME 86.7 fL (81-97); MEAN PLATELET VOLUME 8.7 fL (7.4-10.4); PLATELET COUNT 304 x10^3/uL (130-400); RED BLOOD COUNT 3.85 x10^6/uL (4.38-5.82); RED CELL DISTRIBUTION WIDTH 13.5 % (9.4-14.8)
[2017-12-02 05:52] LABS: CHLORIDE 103 mmol/L (98-107)
[2017-12-02 05:58] LABS: ANION GAP 8 mmol/L (5-15); CALCIUM 7.9 mg/dL (8.5-10.1); CREATININE 0.65 mg/dL (0.7-1.3)
[2017-12-02 06:18] LABS: MD YES
[2017-12-02 06:20] LABS: ANISOCYTOSIS 1+; LYMPH#(MANUAL) 29.03 x10^3/uL (1-3.4); LYMPHS% (MANUAL) 76 % (22-44); SEG#(MANUAL) 9.17 x10^3/uL (1.8-6.8); SEGS% (MANUAL) 24 % (42-75); SMUDGE CELLS 2+
[2017-12-02 06:21] LABS: <PLATELET ESTIMATE> ADEQUATE; <PLT MORPHOLOGY> NORMAL PLT MORPH; POLYCHROMASIA 1+
[2017-12-02] MEDS: ASPIRIN 81 MG TABLET EC PO SCH (06:36)
[2017-12-02] MEDS: CARVEDILOL 3.125 MG TABLET PO SCH ×2 (06:36→16:44)
[2017-12-02] MEDS: ACETAMINOPHEN 325 MG TABLET PO PRN (06:37)
[2017-12-02 06:56] VITALS: BP 128/64
[2017-12-02] MEDS: INSULIN LISPRO 100 UNITS/ML, PEN SQ-INSULIN SCH ×4 (07:04→21:00)
[2017-12-02] MEDS ORDERED: RISPERIDONE 0.5 MG TABLET ONE ×2 (10:14→21:53)
[2017-12-02] MEDS: ENOXAPARIN 40 MG/0.4 ML SQ SCH (10:19)
[2017-12-02] MEDS: metFORMIN 500 MG TABLET PO SCH ×2 (10:20→16:44)
[2017-12-02] MEDS: RISPERIDONE 1 MG TABLET PO SCH ×2 (10:21→21:00)
[2017-12-02] MEDS: TAMSULOSIN 0.4 MG CAP.ER.24H PO SCH (10:21)
[2017-12-02] MEDS: LISINOPRIL 10 MG TABLET PO SCH ×2 (10:21→21:00)
[2017-12-02] MEDS: AMIODARONE 200 MG TABLET PO SCH (10:21)
[2017-12-02] MEDS: CHOLESTYRAMINE LIGHT 4GM PACKET PO SCH ×2 (10:21→21:00)
[2017-12-02] MEDS: SODIUM CHLORIDE FLUSH 10ML SYR IVF SCH ×2 (10:22→22:25)
[2017-12-02 15:21] VITALS: BP 113/60
[2017-12-02] MEDS ORDERED: BISACODYL 10 MG SUPP PR PRN (15:30)
[2017-12-02] MEDS ORDERED: POLYETHYLENE GLYCOL 17 GM PACKET PO PRN (15:30)
[2017-12-02] MEDS ORDERED: TRAM50TA2 PO (15:43)
[2017-12-02] MEDS ORDERED: AMIO200T42 PO (15:43)
[2017-12-02] MEDS ORDERED: TAMS-11 PO (15:45)
[2017-12-02 19:36] VITALS: BP 118/56
[2017-12-02] MEDS: THIAMINE 100MG TABLET PO SCH (21:00)
[2017-12-02] MEDS: FOLIC ACID 1 MG TABLET PO SCH (21:00)
[2017-12-02] MEDS: ATORVASTATIN 80 MG TABLET PO SCH (21:00)
[2017-12-02] MEDS: ONDANSETRON 2MG/ML, 2ML IV PRN (22:21)
[2017-12-02] MEDS: PROMETHAZINE 25 MG/ML, 1ML IM PRN (22:22)
[2017-12-02] MEDS ORDERED: ONDANSETRON 2MG/ML, 2ML IVPB PRN (22:30)
[2017-12-03 01:46] VITALS: BP 118/65
[2017-12-03 06:35] VITALS: BP 120/60
[2017-12-03] MEDS: ASPIRIN 81 MG TABLET EC PO SCH (06:36)
[2017-12-03] MEDS: CARVEDILOL 3.125 MG TABLET PO SCH ×2 (06:36→17:13)
[2017-12-03 06:55] VITALS: BP 110/55
[2017-12-03] MEDS: INSULIN LISPRO 100 UNITS/ML, PEN SQ-INSULIN SCH ×2 (07:33→10:58)
[2017-12-03] MEDS ORDERED: RISPERIDONE 0.5 MG TABLET ONE ×2 (08:18→20:59)
[2017-12-03] MEDS: SODIUM CHLORIDE FLUSH 10ML SYR IVF SCH ×2 (08:32→21:05)
[2017-12-03] MEDS: CHOLESTYRAMINE LIGHT 4GM PACKET PO SCH (08:32)
[2017-12-03] MEDS: metFORMIN 500 MG TABLET PO SCH ×2 (08:32→17:13)
[2017-12-03] MEDS: AMIODARONE 200 MG TABLET PO SCH (08:32)
[2017-12-03] MEDS: TAMSULOSIN 0.4 MG CAP.ER.24H PO SCH (08:32)
[2017-12-03] MEDS: LISINOPRIL 10 MG TABLET PO SCH ×2 (08:33→23:14)
[2017-12-03] MEDS: RISPERIDONE 1 MG TABLET PO SCH ×2 (08:34→23:13)
[2017-12-03] MEDS: ENOXAPARIN 40 MG/0.4 ML SQ SCH (08:35)
[2017-12-03 14:36] VITALS: BP 101/56
[2017-12-03] MEDS: ONDANSETRON 2MG/ML, 2ML IV PRN ×2 (14:38→21:05)
[2017-12-03 19:45] VITALS: BP 123/67
[2017-12-03] MEDS: PROMETHAZINE 25 MG/ML, 1ML IM PRN (21:05)
[2017-12-03] MEDS: THIAMINE 100MG TABLET PO SCH (23:12)
[2017-12-03] MEDS: ATORVASTATIN 80 MG TABLET PO SCH (23:14)
[2017-12-03] MEDS: FOLIC ACID 1 MG TABLET PO SCH (23:14)
[2017-12-04 01:55] VITALS: BP 116/65
[2017-12-04 06:37] VITALS: BP 135/75
[2017-12-04] MEDS: ASPIRIN 81 MG TABLET EC PO SCH (06:38)
[2017-12-04] MEDS: CARVEDILOL 3.125 MG TABLET PO SCH (06:38)
[2017-12-04 08:29] VITALS: BP 100/61
[2017-12-04] MEDS ORDERED: RISPERIDONE 0.5 MG TABLET ONE ×2 (08:51→20:08)
[2017-12-04] MEDS: AMIODARONE 200 MG TABLET PO SCH (09:01)
[2017-12-04] MEDS: TAMSULOSIN 0.4 MG CAP.ER.24H PO SCH (09:01)
[2017-12-04] MEDS: RISPERIDONE 1 MG TABLET PO SCH ×2 (09:01→20:15)
[2017-12-04] MEDS: SODIUM CHLORIDE FLUSH 10ML SYR IVF SCH ×2 (09:02→20:17)
[2017-12-04] MEDS: metFORMIN 500 MG TABLET PO SCH ×2 (09:02→16:49)
[2017-12-04] MEDS: LISINOPRIL 10 MG TABLET PO SCH ×2 (09:02→20:15)
[2017-12-04] MEDS: ENOXAPARIN 40 MG/0.4 ML SQ SCH (09:02)
[2017-12-04] MEDS: METOPROLOL TARTRATE 25 MG TABLET PO SCH ×2 (12:39→20:15)
[2017-12-04 13:35] VITALS: BP 112/72
[2017-12-04] MEDS ORDERED: ONDANSETRON ODT 4 MG ONE (16:45)
[2017-12-04] MEDS: ONDANSETRON ODT 4 MG PO PRN (16:49)
[2017-12-04 20:01] VITALS: BP 110/67
[2017-12-04] MEDS: ATORVASTATIN 80 MG TABLET PO SCH (20:15)
[2017-12-04] MEDS: FOLIC ACID 1 MG TABLET PO SCH (20:15)
[2017-12-04] MEDS: TEMAZEPAM 15 MG CAPSULE PO PRN (20:16)
[2017-12-04] MEDS: THIAMINE 100MG TABLET PO SCH (20:16)
[2017-12-05 02:01] VITALS: BP 104/61
[2017-12-05 05:16] LABS: MEAN CORPUSCULAR HEMOGLOBIN 29.2 pg (27.5-34.5); MEAN CORPUSCULAR HGB CONC 33.3 g/dL (33.2-36.2); MEAN CORPUSCULAR VOLUME 87.6 fL (81-97); MEAN PLATELET VOLUME 7.7 fL (7.4-10.4); PLATELET COUNT 330 x10^3/uL (130-400); RED BLOOD COUNT 3.67 x10^6/uL (4.38-5.82); RED CELL DISTRIBUTION WIDTH 14.1 % (9.4-14.8)
[2017-12-05 05:34] LABS: CHLORIDE 106 mmol/L (98-107)
[2017-12-05 05:39] LABS: ANION GAP 6 mmol/L (5-15); CALCIUM 8.1 mg/dL (8.5-10.1); CREATININE 0.99 mg/dL (0.7-1.3)
[2017-12-05] MEDS: ASPIRIN 81 MG TABLET EC PO SCH (05:59)
[2017-12-05] MEDS: METOPROLOL TARTRATE 25 MG TABLET PO SCH ×3 (05:59→20:53)
[2017-12-05 06:36] LABS: MD YES
[2017-12-05 06:40] LABS: ANISOCYTOSIS 1+; BASOS#(MANUAL) 0.41 x10^3/uL (0-0.1); BASOS% (MANUAL) 1 % (0-1); LYMPH#(MANUAL) 30.19 x10^3/uL (1-3.4); LYMPHS% (MANUAL) 74 % (22-44); MONOS#(MANUAL) 0.82 x10^3/uL (0.3-2.7); MONOS% (MANUAL) 2 % (2-9); SEG#(MANUAL) 9.38 x10^3/uL (1.8-6.8); SEGS% (MANUAL) 23 % (42-75)
[2017-12-05 06:41] LABS: <PLATELET ESTIMATE> ADEQUATE; <PLT MORPHOLOGY> NORMAL PLT MORPH
[2017-12-05 07:24] VITALS: BP 107/63
[2017-12-05] MEDS: metFORMIN 500 MG TABLET PO SCH ×2 (08:00→16:14)
[2017-12-05] MEDS: RISPERIDONE 1 MG TABLET PO SCH ×2 (09:00→20:54)
[2017-12-05] MEDS ORDERED: RISPERIDONE 0.5 MG TABLET ONE (09:27)
[2017-12-05] MEDS: SODIUM CHLORIDE FLUSH 10ML SYR IVF SCH ×2 (09:33→20:53)
[2017-12-05] MEDS: TAMSULOSIN 0.4 MG CAP.ER.24H PO SCH (09:33)
[2017-12-05] MEDS: ENOXAPARIN 40 MG/0.4 ML SQ SCH (09:34)
[2017-12-05] MEDS: LISINOPRIL 10 MG TABLET PO SCH ×2 (09:34→20:53)
[2017-12-05 13:38] VITALS: BP 101/56
[2017-12-05 19:55] VITALS: BP 111/54
[2017-12-05] MEDS: ATORVASTATIN 80 MG TABLET PO SCH (20:53)
[2017-12-05] MEDS: THIAMINE 100MG TABLET PO SCH (20:57)
[2017-12-05] MEDS: FOLIC ACID 1 MG TABLET PO SCH (20:57)
[2017-12-05] MEDS: TEMAZEPAM 15 MG CAPSULE PO PRN (21:05)
[2017-12-06 02:39] VITALS: BP 112/61
[2017-12-06 05:06] LABS: MEAN CORPUSCULAR HEMOGLOBIN 28.4 pg (27.5-34.5); MEAN CORPUSCULAR HGB CONC 32.8 g/dL (33.2-36.2); MEAN CORPUSCULAR VOLUME 86.5 fL (81-97); MEAN PLATELET VOLUME 7.7 fL (7.4-10.4); PLATELET COUNT 336 x10^3/uL (130-400); RED BLOOD COUNT 3.58 x10^6/uL (4.38-5.82); RED CELL DISTRIBUTION WIDTH 13.9 % (9.4-14.8)
[2017-12-06 05:13] LABS: ALBUMIN 2.2 g/dL (3.4-5.0); ANION GAP 6 mmol/L (5-15); CALCIUM 7.9 mg/dL (8.5-10.1); CHLORIDE 104 mmol/L (98-107)
[2017-12-06 05:46] LABS: MD YES
[2017-12-06 05:47] LABS: <PLATELET ESTIMATE> ADEQUATE; <PLT MORPHOLOGY> NORMAL PLT MORPH; ANISOCYTOSIS 1+; EOS#(MANUAL) 0.38 x10^3/uL (0.0-0.4); EOS% (MANUAL) 1 % (1-7); LYMPH#(MANUAL) 27.89 x10^3/uL (1-3.4); LYMPHS% (MANUAL) 73 % (22-44); MONOS#(MANUAL) 0.76 x10^3/uL (0.3-2.7); MONOS% (MANUAL) 2 % (2-9); SEG#(MANUAL) 9.17 x10^3/uL (1.8-6.8); SEGS% (MANUAL) 24 % (42-75); SMUDGE CELLS 2+
[2017-12-06] MEDS: ASPIRIN 81 MG TABLET EC PO SCH (05:59)
[2017-12-06] MEDS: METOPROLOL TARTRATE 25 MG TABLET PO SCH ×3 (05:59→21:22)
[2017-12-06 07:35] VITALS: BP 126/73
[2017-12-06] MEDS: TAMSULOSIN 0.4 MG CAP.ER.24H PO SCH (08:54)
[2017-12-06] MEDS: LISINOPRIL 10 MG TABLET PO SCH ×2 (08:54→21:22)
[2017-12-06] MEDS: metFORMIN 500 MG TABLET PO SCH ×2 (08:54→16:47)
[2017-12-06] MEDS: SODIUM CHLORIDE FLUSH 10ML SYR IVF SCH ×2 (08:55→21:24)
[2017-12-06] MEDS: ENOXAPARIN 40 MG/0.4 ML SQ SCH (08:55)
[2017-12-06 11:01] LABS: HEMOGLOBIN A1C 6.7 % (4.2-6.3)
[2017-12-06 13:32] VITALS: BP 106/55
[2017-12-06] MEDS: ACETAMINOPHEN 325 MG TABLET PO PRN (16:47)
[2017-12-06 19:57] VITALS: BP 130/74
[2017-12-06] MEDS: ATORVASTATIN 80 MG TABLET PO SCH (21:22)
[2017-12-06] MEDS: RISPERIDONE 1 MG TABLET PO SCH (21:23)
[2017-12-06] MEDS: FOLIC ACID 1 MG TABLET PO SCH (21:27)
[2017-12-06] MEDS: THIAMINE 100MG TABLET PO SCH (21:45)
[2017-12-07 02:46] VITALS: BP 143/70
[2017-12-07] MEDS: ASPIRIN 81 MG TABLET EC PO SCH (05:54)
[2017-12-07] MEDS: METOPROLOL TARTRATE 25 MG TABLET PO SCH ×3 (05:55→22:42)
[2017-12-07 07:24] VITALS: BP 129/69
[2017-12-07] MEDS: SODIUM CHLORIDE FLUSH 10ML SYR IVF SCH ×2 (10:14→21:19)
[2017-12-07] MEDS: ENOXAPARIN 40 MG/0.4 ML SQ SCH (10:14)
[2017-12-07] MEDS: LISINOPRIL 10 MG TABLET PO SCH ×2 (10:14→21:19)
[2017-12-07] MEDS: TAMSULOSIN 0.4 MG CAP.ER.24H PO SCH (10:14)
[2017-12-07] MEDS: metFORMIN 500 MG TABLET PO SCH ×2 (10:14→18:40)
[2017-12-07 13:16] VITALS: BP 123/58
[2017-12-07 20:02] VITALS: BP 135/66
[2017-12-07] MEDS: RISPERIDONE 1 MG TABLET PO SCH (21:00)
[2017-12-07] MEDS ORDERED: RISPERIDONE 0.5 MG TABLET ONE (21:11)
[2017-12-07] MEDS: ATORVASTATIN 80 MG TABLET PO SCH (21:19)
[2017-12-07] MEDS: FOLIC ACID 1 MG TABLET PO SCH (21:19)
[2017-12-07] MEDS: THIAMINE 100MG TABLET PO SCH (21:20)
[2017-12-07] MEDS: ACETAMINOPHEN 325 MG TABLET PO PRN (21:22)
[2017-12-08] MEDS: ACETAMINOPHEN 325 MG TABLET PO PRN ×6 (02:45→23:35)
[2017-12-08 03:01] VITALS: BP 135/70
[2017-12-08 04:47] LABS: MEAN CORPUSCULAR HEMOGLOBIN 28.8 pg (27.5-34.5); MEAN CORPUSCULAR HGB CONC 32.9 g/dL (33.2-36.2); MEAN CORPUSCULAR VOLUME 87.4 fL (81-97); MEAN PLATELET VOLUME 7.3 fL (7.4-10.4); PLATELET COUNT 322 x10^3/uL (130-400); RED BLOOD COUNT 3.81 x10^6/uL (4.38-5.82); RED CELL DISTRIBUTION WIDTH 13.7 % (9.4-14.8)
[2017-12-08 05:01] LABS: ALANINE AMINOTRANSFERASE 15 U/L (12-78); ALBUMIN 2.4 g/dL (3.4-5.0); ANION GAP 4 mmol/L (5-15); CALCIUM 8.4 mg/dL (8.5-10.1); CHLORIDE 103 mmol/L (98-107)
[2017-12-08 05:03] LABS: ALKALINE PHOSPHATASE 100 U/L (45-117); BILIRUBIN,TOTAL 0.4 mg/dL (0.2-1.0); CREATININE 0.76 mg/dL (0.7-1.3); TOTAL PROTEIN 6.7 g/dL (6.4-8.2)
[2017-12-08 05:30] LABS: MD YES
[2017-12-08 05:32] LABS: LYMPH#(MANUAL) 28.12 x10^3/uL (1-3.4); LYMPHS% (MANUAL) 76 % (22-44); MONOS#(MANUAL) 0.74 x10^3/uL (0.3-2.7); MONOS% (MANUAL) 2 % (2-9); SEG#(MANUAL) 8.14 x10^3/uL (1.8-6.8); SEGS% (MANUAL) 22 % (42-75)
[2017-12-08 05:33] LABS: <PLATELET ESTIMATE> ADEQUATE; <PLT MORPHOLOGY> NORMAL PLT MORPH; ANISOCYTOSIS 1+; SMUDGE CELLS 2+
[2017-12-08] MEDS: ONDANSETRON ODT 4 MG PO PRN ×2 (05:58→12:14)
[2017-12-08] MEDS: METOPROLOL TARTRATE 25 MG TABLET PO SCH ×3 (05:58→22:00)
[2017-12-08] MEDS: ASPIRIN 81 MG TABLET EC PO SCH (05:58)
[2017-12-08 07:30] VITALS: BP 124/63
[2017-12-08] MEDS: TAMSULOSIN 0.4 MG CAP.ER.24H PO SCH (09:11)
[2017-12-08] MEDS: ENOXAPARIN 40 MG/0.4 ML SQ SCH (09:12)
[2017-12-08] MEDS: LISINOPRIL 10 MG TABLET PO SCH ×2 (09:12→21:35)
[2017-12-08] MEDS: metFORMIN 500 MG TABLET PO SCH ×2 (09:12→18:01)
[2017-12-08] MEDS: SODIUM CHLORIDE FLUSH 10ML SYR IVF SCH ×2 (09:12→22:01)
[2017-12-08 12:59] VITALS: BP 124/65
[2017-12-08] MEDS: PROMETHAZINE 25 MG/ML, 1ML IM PRN (14:59)
[2017-12-08 20:00] VITALS: BP 132/66
[2017-12-08] MEDS: RISPERIDONE 1 MG TABLET PO SCH (21:00)
[2017-12-08] MEDS ORDERED: RISPERIDONE 2 MG TABLET ONE (21:16)
[2017-12-08] MEDS: ATORVASTATIN 80 MG TABLET PO SCH (21:32)
[2017-12-08] MEDS: FOLIC ACID 1 MG TABLET PO SCH (21:33)
[2017-12-08] MEDS: THIAMINE 100MG TABLET PO SCH (21:34)
[2017-12-09 01:46] VITALS: BP 134/72
[2017-12-09] MEDS: ACETAMINOPHEN 325 MG TABLET PO PRN (04:01)
[2017-12-09] MEDS: ASPIRIN 81 MG TABLET EC PO SCH (05:45)
[2017-12-09] MEDS: METOPROLOL TARTRATE 25 MG TABLET PO SCH (05:45)
[2017-12-09 06:48] VITALS: BP 168/74
[2017-12-09] MEDS: ONDANSETRON ODT 4 MG PO PRN (07:38)
[2017-12-09] MEDS: metFORMIN 500 MG TABLET PO SCH (08:08)
[2017-12-09] MEDS: ENOXAPARIN 40 MG/0.4 ML SQ SCH (08:08)
[2017-12-09] MEDS: LISINOPRIL 10 MG TABLET PO SCH (08:08)
[2017-12-09] MEDS: TAMSULOSIN 0.4 MG CAP.ER.24H PO SCH (08:08)
[2017-12-09] MEDS: SODIUM CHLORIDE FLUSH 10ML SYR IVF SCH (08:09)
[2017-12-09] MEDS ORDERED: METF500T PO (08:25)
[2017-12-09] MEDS ORDERED: METO25TA35 PO (08:25)
[2017-12-09] MEDS ORDERED: RISP1TAB45 PO ×2 (08:25→08:26)
[2017-12-09 10:45] VITALS: BP 150/77
== END 2017-12-09 11:15 | DRG 871 ==
LOC: ED 20:22 → EDIP 20:32 → SUATTDRO 20:34 → ICU 11-10 12:16 → CCU 11-11 15:44 → 5SO 11-17 15:51 → 4NOR 11-22 16:01
PROVIDERS: ADMIT Hospitalist; ATTEND Family Medicine
PROC: 5A1945Z Respiratory Ventilation, 24-96 Consecutive Hours (ICD-10-PCS; principal; 2017-11-09)
PROC: 0BH17EZ Insertion of Endotracheal Airway into Trachea, Via Natural or Artificial Opening (ICD-10-PCS; 2017-11-09)
PROC: 0T9B70Z Drainage of Bladder with Drainage Device, Via Natural or Artificial Opening (ICD-10-PCS; 2017-11-09)
PROC: 02HV33Z Insertion of Infusion Device into Superior Vena Cava, Percutaneous Approach (ICD-10-PCS; 2017-11-09)
PROC: 02PYX3Z Removal of Infusion Device from Great Vessel, External Approach (ICD-10-PCS; 2017-11-15)
PROC: 0DH67UZ Insertion of Feeding Device into Stomach, Via Natural or Artificial Opening (ICD-10-PCS; 2017-11-17)
PROC: 0HBRXZZ Excision of Toe Nail, External Approach (ICD-10-PCS; 2017-11-29)
PROC: 0HBRXZZ Excision of Toe Nail, External Approach (ICD-10-PCS; 2017-11-29)
PROC: 0HBRXZZ Excision of Toe Nail, External Approach (ICD-10-PCS; 2017-11-29)
PROC: 0HBRXZZ Excision of Toe Nail, External Approach (ICD-10-PCS; 2017-11-29)
PROC: 0HBRXZZ Excision of Toe Nail, External Approach (ICD-10-PCS; 2017-11-29)
PROC: 0HBRXZZ Excision of Toe Nail, External Approach (ICD-10-PCS; 2017-11-29)
PROC: 0HBRXZZ Excision of Toe Nail, External Approach (ICD-10-PCS; 2017-11-29)
PROC: 0HBRXZZ Excision of Toe Nail, External Approach (ICD-10-PCS; 2017-11-29)
PROC: 0HBRXZZ Excision of Toe Nail, External Approach (ICD-10-PCS; 2017-11-29)
PROC: 0HBRXZZ Excision of Toe Nail, External Approach (ICD-10-PCS; 2017-11-29)
PROC: 0TPBX0Z Removal of Drainage Device from Bladder, External Approach (ICD-10-PCS; 2017-12-02)
PROC: 0DP6XUZ Removal of Feeding Device from Stomach, External Approach (ICD-10-PCS; 2017-12-02)
DX: A41.9 Sepsis, unspecified organism (principal); J96.01 Acute respiratory failure with hypoxia; I21.4 Non-ST elevation (NSTEMI) myocardial infarction; E43 Unspecified severe protein-calorie malnutrition; J69.0 Pneumonitis due to inhalation of food and vomit; N17.0 Acute kidney failure with tubular necrosis; G93.41 Metabolic encephalopathy; E87.4 Mixed disorder of acid-base balance; C91.10 Chronic lymphocytic leukemia of B-cell type not having achieved remission; R65.21 Severe sepsis with septic shock; D61.818 Other pancytopenia; K92.2 Gastrointestinal hemorrhage, unspecified; E87.0 Hyperosmolality and hypernatremia; E87.1 Hypo-osmolality and hyponatremia; M62.82 Rhabdomyolysis; R18.8 Other ascites; J98.11 Atelectasis; I50.30 Unspecified diastolic (congestive) heart failure; Z99.11 Dependence on respirator [ventilator] status; R45.851 Suicidal ideations; D89.2 Hypergammaglobulinemia, unspecified; B35.1 Tinea unguium; E11.40 Type 2 diabetes mellitus with diabetic neuropathy, unspecified; E11.649 Type 2 diabetes mellitus with hypoglycemia without coma; E11.65 Type 2 diabetes mellitus with hyperglycemia; E87.5 Hyperkalemia; F10.10 Alcohol abuse, uncomplicated; F17.200 Nicotine dependence, unspecified, uncomplicated; F32.9 Major depressive disorder, single episode, unspecified; F41.9 Anxiety disorder, unspecified; I11.0 Hypertensive heart disease with heart failure; I48.91 Unspecified atrial fibrillation; I65.21 Occlusion and stenosis of right carotid artery; K52.9 Noninfective gastroenteritis and colitis, unspecified; K59.00 Constipation, unspecified; K86.9 Disease of pancreas, unspecified; W13.4XXA Fall from, out of or through window, initial encounter; R56.9 Unspecified convulsions; T39.1X1A Poisoning by 4-Aminophenol derivatives, accidental (unintentional), initial encounter; R33.9 Retention of urine, unspecified; Z51.5 Encounter for palliative care; Z79.82 Long term (current) use of aspirin; Z79.4 Long term (current) use of insulin; Z79.899 Other long term (current) drug therapy; I25.2 Old myocardial infarction; Z86.73 Personal history of transient ischemic attack (TIA), and cerebral infarction without residual deficits; Z91.5 Personal history of self-harm; Z68.20 Body mass index [BMI] 20.0-20.9, adult; Y93.39 Activity, other involving climbing, rappelling and jumping off; Y92.89 Other specified places as the place of occurrence of the external cause; Y99.8 Other external cause status
CPT/HCPCS: 31500; 36415; 36569; 36600; 51702; 70450; 70544; 70551; 71045; 74018; 74181; 74230; 76770; 78452; 80048; 80053; 80202; 80307; 80329; 81001; 82010; 82040; 82140; 82272; 82378; 82533; 82550; 82803; 82962; 83036; 83605; 83615; 83690; 83735; 83880; 84100; 84132; 84443; 84478; 84484; 84550; 85014; 85018; 85025; 85610; 86022; 86301; 87040; 87070; 87081; 87205; 87324; 87806; 88184; 88185; 93005; 93017; 93306; 93308; 93880; 94002; 94003; 94150; 94640; 95819; 96361; 96365; 96366; 96368; 96375; J0132; J0696; J1335; J1650; J2250; J2354; J2405; J2543; J2550; J2704; J2785; J3010; J3370; J3480; J7042; J7060; J7070; Q0162; 92523-GN; A9502; C9113; C9898; G0475; G0480; J0282; J0330; J0360; J1652; J1815; J1940; J7030; J7040; J7050; J7120